=== PATIENT | male | born 2000 | race Caucasian/White ===

== ENCOUNTER 2024-03-12 22:14 | Inpatient (IN) ==
[2024-03-12 22:40] LABS: Basophils # (auto) 0.08 K/uL (0.00-0.20); Basophils % (auto) 1.2 %; Eosinophils # (auto) 0.56 K/uL (0.00-0.50); Eosinophils % (auto) 8.5 %; Hematocrit (blood only) 42.3 % (42.0-52.0); Hemoglobin 14.7 g/dl (14.0-18.0); Immature Granulocytes # (auto) 0.01 K/uL (0.01-0.20); Immature Granulocytes % (auto) 0.2 %; Lymphocytes % (auto) 30.2 %; Mean Corpuscular Hemoglobin 31.8 pg (25.0-34.0); Mean Corpuscular Hgb Conc 34.8 g/dL (32.0-36.0); Mean Corpuscular Volume 91.6 fL (80.0-100.0); Mean Platelet Volume 9.2 fL (9.4-12.4); Monocytes # (auto) 0.46 K/uL (0.11-0.59); Monocytes % (auto) 6.9 %; Neutrophils # (auto) 3.51 K/uL (1.40-6.50); Platelet Count 273 K/uL (130-400); RDW Coefficient of Variation 11.6 % (11.5-14.5); Red Blood Count 4.62 M/uL (4.70-6.10); White Blood Count 6.62 K/ul (4.8-10.8)
[2024-03-12 22:55] LABS: Acetaminophen < 3 ug/ml (10-30); Salicylate < 3.0 mg/dl (3.0-30)
[2024-03-12 22:57] LABS: Alanine Aminotransferase 8 U/L (7-52); Albumin Globulin Ratio 1.6 (0.9-2); Albumin Level 4.2 gm/dl (3.4-5.0); Alkaline Phosphatase 99 U/L (34-104); Anion Gap 7 (3-11); Aspartate Aminotransferase 15 U/L (13-39); BUN Creatinine Ratio 17.4 (10-20); Bilirubin,Total 0.3 mg/dl (0.2-1.0); Blood Urea Nitrogen 15 mg/dl (6-23); Carbon Dioxide 26 mmol/L (21-32); Chloride 105 mmol/L (98-107); Est GFR (African American) 142.7 ml/min; Est GFR (Non-African American) 123.1 ml/min; Globulin 2.7 gm/dl (2.5-4.0); Glucose 103 mg/dl (70-99(Fasting)); Potassium 4.1 mmol/L (3.5-5.1); Sodium 138 mmol/L (136-145); Total Protein 6.9 gm/dl (6.0-8.3)
[2024-03-12] MEDS: SODIUM CHLORIDE 0.9% 1,000 ML IV ONE (23:03)
[2024-03-12 23:12] LABS: Thyroid Stimulating Hormone 1.012 uIu/ml (0.300-4.500)
--- NOTE | 2024-03-12 23:23 | CT Scan Report ---
Exam(s): CT C SPINE EXAM: CT Cervical Spine Without Intravenous Contrast CLINICAL HISTORY: Reason for exam: head trauma OD. TECHNIQUE: Axial computed tomography images of the cervical spine without intravenous contrast. CTDI is 21.99 mGy and DLP is 371.39 mGy-cm. Automated exposure control was utilized for the study. A dose lowering technique was utilized adhering to the principles of ALARA. COMPARISON: 08/28/23 FINDINGS: Vertebrae: Unremarkable. No acute fracture. No traumatic subluxation. Discs/spinal canal/neural foramina: No acute findings. No spinal canal stenosis. Soft tissues: Unremarkable. IMPRESSION: No acute osseous findings. Electronically signed by: Mal Baird M.D. 03/12/24 23:22 PM
--- NOTE | 2024-03-12 23:24 | CT Scan Report ---
Exam(s): CT HEAD Without Contrast EXAM: CT Head Without Intravenous Contrast CLINICAL HISTORY: Reason for exam: head trauma OD. TECHNIQUE: Axial computed tomography images of the head/brain without intravenous contrast. CTDI is 37.42 mGy and DLP is 624.41 mGy-cm. Automated exposure control was utilized for the study. A dose lowering technique was utilized adhering to the principles of ALARA. COMPARISON: 08/28/23 FINDINGS: Brain: Unremarkable. No hemorrhage. No significant white matter disease. No edema. Oshea-white matter differentiation maintained. Ventricles: Unremarkable. No hydrocephalus. Bones/joints: Unremarkable. No acute fracture. Soft tissues: Unremarkable. Sinuses: Unremarkable as visualized. Mastoid air cells: Unremarkable as visualized. No mastoid effusion. IMPRESSION: No acute intracranial process. Electronically signed by: Mal Baird M.D. 03/12/24 23:22 PM
--- NOTE | 2024-03-12 23:48 | Emergency Department Note ---
History of Present Illness General Chief complaint: Overdose (Intentional) Stated complaint: Intentional Overdose Prescription Meds Time Seen by Provider: 03/12/24 22:16 Source: EMS, police and friends (Girlfriend) History of Present Illness Provider complaint: Overdose 23-year-old male presents emergency department for intentional overdose and suicide attempt. Patient was brought in by state troopers and EMS. According to the state troopers and EMS approximately 40 minutes prior to arrival patient took handfuls of pills and tried to swallow as many as he could. The girlfriend states this occurred because again to a verbal altercation. The girlfriend states he took a metal pole and was hitting himself in the head with a metal pole because he got angry and wanted to kill himself. EMS brought in the empty pill bottles that the patient tried to take. Home Medications Medication Instructions Recorded Confirmed Type acetaminophen 500 mg tablet 500 mg PO Q6H PRN Pain 08/31/23 08/31/23 History aspirin 325 mg tablet 325 mg PO DAILY PRN Pain 08/31/23 08/31/23 History benzonatate 100 mg capsule 100 mg PO TID PRN cough #30 caps 08/31/23 Rx Allergies Allergy/AdvReac Type Severity Reaction Status Date / Time acetaminophen [From NyQuil] Allergy Severe Swelling Verified 08/31/23 15:12 of Lip/Tongue/Throat dextromethorphan Allergy Severe Swelling Verified 08/31/23 15:12 [From NyQuil] of Lip/Tongue/Throat doxylamine [From NyQuil] Allergy Severe Swelling Verified 08/31/23 15:12 of Lip/Tongue/Throat pseudoephedrine [From NyQuil] Allergy Severe Swelling Verified 08/31/23 15:12 of Lip/Tongue/Throat Past Med/Surg History Problem List (Updated 03/13/24 @ 00:09 by Hayder Graham MD) Polysubstance overdose (Acute) Lab test negative for COVID-19 virus (Acute) Contusion of arm, right, multiple sites (Acute) Medical History No pertinent past medical history Social History Smoking Status: Unknown if ever smoked Tobacco Type: Cigarettes Hx Substance Use: Yes Preferred Language: Mohawk Feels Safe at Home: Yes Physical Exam Vital Signs Vital Signs - 24 hr 03/12/24 22:16 03/12/24 22:16 03/12/24 22:27 Temperature 36.7 C Temperature Source Oral Pulse Rate 108 H 104 H Pulse Rate [Apical] Respiratory Rate 22 Respiratory Effort / Characteristics Non-Labored Respiratory Depth Normal Respiratory Pattern Regular Blood Pressure 99/55 L Blood Pressure [Left Arm] Blood Pressure Mean 69 Blood Pressure Mean [Left Arm] Pulse Oximetry 97 100 Oxygen Delivery Method Room Air Room Air Sepsis Recent Fever Within 48 Hours No Sepsis New/Unexplained Change in Mental Status N/A Sepsis Action Taken by Nursing No Action Required 03/12/24 23:04 Temperature Temperature Source Pulse Rate Pulse Rate [Apical] 90 Respiratory Rate 20 Respiratory Effort / Characteristics Respiratory Depth Respiratory Pattern Blood Pressure Blood Pressure [Left Arm] 89/60 L Blood Pressure Mean Blood Pressure Mean [Left Arm] 69 Pulse Oximetry 98 Oxygen Delivery Method Room Air Sepsis Recent Fever Within 48 Hours Sepsis New/Unexplained Change in Mental Status Sepsis Action Taken by Nursing Physical Exam HENT: Exam performed. - Head: Normocephalic and atraumatic. EYES: Conjunctivae and EOM are normal. Pupils are equal, round, and reactive to light. Right eye exhibits no discharge. Left eye exhibits no discharge. No scleral icterus. NECK: Normal range of motion. Neck supple. No JVD present. CV: Normal rate, regular rhythm, normal heart sounds and intact distal pulses. There is no peripheral edema. Palpable radial pulses bue. PULM/CHEST: Effort normal and breath sounds normal. No respiratory distress. No stridor. He has no wheezes. He has no rales. ABD: The abdomen is soft. There is no tenderness. There is no rebound, no guarding NEURO: Motor and sensation grossly intact SKIN: Abrasions to the left forearm. Course Course 221: The patient was evaluated in room A9. A complete history and physical exam was performed Cardiac monitoring: An order was placed for continuous cardiac monitoring. The monitor shows a rate of 100 with sinus rhythm interpreted by me EMS brought all of the patient's pill bottles which are all empty. He has the following bottles with him: - Metocarbama 500 mg 30 tablets -Hydroxyzine 50 mg 60 tablets -Clonidine 0.1 mg 6 tablets -Flexeril 5 mg the number of tablets was by the patient is unclear how many tablets were in the bottle -Prazosin 1 mg 90 tablets Again there are no pills in any of these bottles and is not clear how much the patient actually took or how and he fell on the floor. 2254: Spoke with Rodger from [facility]. He states that the patient needs supportive care and if the patient becomes severely bradycardic and is not responding we could try high-dose of Narcan for 10 mg. 0005: Labs and imaging within normal limits. Spoke with Dr. Thurman and the patient will be admitted to his service for continued observation and psychiatric evaluation. Administered Medications Discontinued Medications Sodium Chloride (Nss) 1,000 mls @ 999 mls/hr IV .Q1H1M ONE Stop: 03/12/24 23:52 Last Admin: 03/12/24 23:03 Dose: 999 mls/hr Documented By: PRAVEEN Medical Decision Making Laboratory Data Attestation: I reviewed the patient's lab results. 03/12/24 22:24 03/12/24 22:24 Lab Results 03/12/24 Range/Units 22:24 WBC 6.62 (4.8-10.8) K/ul RBC 4.62 L (4.70-6.10) M/uL Hgb 14.7 (14.0-18.0) g/dl Hct 42.3 (42.0-52.0) % MCV 91.6 (80.0-100.0) fL MCH 31.8 (25.0-34.0) pg MCHC 34.8 (32.0-36.0) g/dL RDW Std Deviation 39.0 (36.4-46.3) fL RDW Coeff of Alice 11.6 (11.5-14.5) % Plt Count 273 (130-400) K/uL MPV 9.2 L (9.4-12.4) fL Immature Gran % (Auto) 0.2 % Neut % (Auto) 53.0 % Lymph % (Auto) 30.2 % Jay % (Auto) 6.9 % Eos % (Auto) 8.5 % Baso % (Auto) 1.2 % Neut # (Auto) 3.51 (1.40-6.50) K/uL Lymph # (Auto) 2.00 (1.20-3.40) K/uL Jay # (Auto) 0.46 (0.11-0.59) K/uL Eos # (Auto) 0.56 H (0.00-0.50) K/uL Baso # (Auto) 0.08 (0.00-0.20) K/uL Immature Gran # (Auto) 0.01 (0.01-0.20) K/uL Sodium 138 (136-145) mmol/L Potassium 4.1 (3.5-5.1) mmol/L Chloride 105 (98-107) mmol/L Carbon Dioxide 26 (21-32) mmol/L Anion Gap 7 (3-11) BUN 15 (6-23) mg/dl Creatinine 0.86 (0.6-1.4) mg/dl Est Cr Clr Drug Dosing Not Reportable Est GFR ( Amer) 142.7 ml/min Est GFR (Non-Af Amer) 123.1 ml/min BUN/Creatinine Ratio 17.4 (10-20) Glucose 103 H (70-99(Fasting)) mg/dl Calcium 9.0 (8.6-10.3) mg/dl Total Bilirubin 0.3 (0.2-1.0) mg/dl AST 15 (13-39) U/L ALT 8 (7-52) U/L Alkaline Phosphatase 99 (34-104) U/L Total Protein 6.9 (6.0-8.3) gm/dl Albumin 4.2 (3.4-5.0) gm/dl Globulin 2.7 (2.5-4.0) gm/dl Albumin/Globulin Ratio 1.6 (0.9-2) TSH 1.012 (0.300-4.500) uIu/ml Salicylates < 3.0 L (3.0-30) mg/dl Acetaminophen < 3 L (10-30) ug/ml Ethyl Alcohol mg/dL < 10.0 (<10.0) mg/dl SARS-CoV-2, RNA, NAAT NEGATIVE (NEGATIVE) Imaging Data Attestation: I personally reviewed and interpreted this imaging study as follows: My Impression: CT head: No ICH Radiologist's Impression: Cervical Spine CT 03/12/24 22:34 Exam(s): CT C SPINE EXAM: CT Cervical Spine Without Intravenous Contrast CLINICAL HISTORY: Reason for exam: head trauma OD. TECHNIQUE: Axial computed tomography images of the cervical spine without intravenous contrast. CTDI is 21.99 mGy and DLP is 371.39 mGy-cm. Automated exposure control was utilized for the study. A dose lowering technique was utilized adhering to the principles of ALARA. COMPARISON: 08/28/23 FINDINGS: Vertebrae: Unremarkable. No acute fracture. No traumatic subluxation. Discs/spinal canal/neural foramina: No acute findings. No spinal canal stenosis. Soft tissues: Unremarkable. IMPRESSION: No acute osseous findings. Electronically signed by: Mal Baird M.D. 03/12/24 23:[address] 03/12/24 22:34 Exam(s): CT HEAD Without Contrast EXAM: CT Head Without Intravenous Contrast CLINICAL HISTORY: Reason for exam: head trauma OD. TECHNIQUE: Axial computed tomography images of the head/brain without intravenous contrast. CTDI is 37.42 mGy and DLP is 624.41 mGy-cm. Automated exposure control was utilized for the study. A dose lowering technique was utilized adhering to the principles of ALARA. COMPARISON: 08/28/23 FINDINGS: Brain: Unremarkable. No hemorrhage. No significant white matter disease. No edema. Oshea-white matter differentiation maintained. Ventricles: Unremarkable. No hydrocephalus. Bones/joints: Unremarkable. No acute fracture. Soft tissues: Unremarkable. Sinuses: Unremarkable as visualized. Mastoid air cells: Unremarkable as visualized. No mastoid effusion. IMPRESSION: No acute intracranial process. Electronically signed by: Mal Baird M.D. 03/12/24 23:22 PM ECG Data Attestation: I personally reviewed and interpreted this ECG as follows: Indication: + toxicologic Rate (beats per minute): 113 Rhythm: + sinus tachycardia ECG Intervals/blocks: + Normal QRS, + Normal [place] and + Normal QT-c ECG ST segments: + Normal ST segments MDM Narrative 2216: The patient was evaluated in room A9. A complete history and physical exam was performed Cardiac monitoring: An order was placed for continuous cardiac monitoring. The monitor shows a rate of 100 with sinus rhythm interpreted by me EMS brought all of the patient's pill bottles which are all empty. He has the following bottles with him: - Metocarbama 500 mg 30 tablets -Hydroxyzine 50 mg 60 tablets -Clonidine 0.1 mg 6 tablets -Flexeril 5 mg the number of tablets was by the patient is unclear how many tablets were in the bottle -Prazosin 1 mg 90 tablets Again there are no pills in any of these bottles and is not clear how much the patient actually took or how and he fell on the floor. 2254: Spoke with Rodger from [facility]. He states that the patient needs supportive care and if the patient becomes severely bradycardic and is not responding we could try high-dose of Narcan for 10 mg. 0005: Labs and imaging within normal limits. Spoke with Dr. Thurman and the patient will be admitted to his service for continued observation and psychiatric evaluation. Impression & Plan Polysubstance overdose Discharge Plan Visit Data Chief Complaint: Overdose (Intentional) Stated Complaint: Intentional Overdose Prescription Meds ED Provider: Hayder Graham Discharge Problem: Polysubstance overdose Patient Disposition: Admitted As Inpatient Forms Stand Alone Forms: [facility], Suicide Prevention Resources Prescriptions Prescriptions: No Action aspirin 325 mg Tablet 325 mg PO DAILY PRN (Reason: Pain) acetaminophen [Tylenol Ex Str Rapid Release] 500 mg Tablet 500 mg PO Q6H PRN (Reason: Pain) benzonatate 100 mg capsule 100 mg PO TID PRN (Reason: cough) Qty: 30 0RF Referrals Referrals: PCP,NO [Primary Care Provider] - Discharge Problem: Polysubstance overdose Qualifiers: Encounter type: initial encounter Injury intent: intentional self-harm Q ualified Code(s): T50.902A - Poisoning by unspecified drugs, medicaments and biological substances, intentional self-harm, initial encounter
[2024-03-13] MEDS: SODIUM CHLORIDE 0.9% 1,000 ML IV SCH ×3 (00:36→12:14)
[2024-03-13] MEDS: SODIUM CHLORIDE 0.9% 1,000 ML IV ONE ×3 (01:05→03:22)
[2024-03-13] MEDS ORDERED: STAT IV Infusion **Titration per Protocol STA (03:05)
[2024-03-13] MEDS: NOREPINEPHRINE/D5W 4 MG/250 ML PLCT IV SCH (03:24)
[2024-03-13 03:36] LABS: Magnesium 2.1 mg/dl (1.7-2.4)
[2024-03-13 04:43] LABS: Appearance Urine Clear (Clear); Bilirubin Urine Negative (Negative); Blood Urine Negative (Negative); Color Urine Yellow; Glucose Urine UA Negative (Negative); Ketones Urine Negative (Negative); Leukocyte Esterase Urine Negative (Negative); Nitrite Urine Negative (Negative); Protein Urine Negative (Negative); Specific Gravity Urine 1.016 (1.000-1.030); Urobilinogen Urine Negative (Negative)
--- NOTE | 2024-03-13 04:45 | Critical Care Consultation ---
Date of Consultation March 13, 2024 Assessment & Plan (1) Polysubstance overdose: (2) Urinary retention: (3) Hypotension due to medication: (4) Suicide attempt: Plan Reason Critically Ill: 23 YOM presents via EMS for polysubstance overdose of unkown amount and unknown medications- presumed as per HPI meds. No requiring vasopressor support. Neuro - Suicide attempt by ingestion, Encephalopathy CAM ICU: - Somnulent, but able to follow commands, currently protecting airway - Continue with IVF support and await clearing of medications - Suicide precautions- 302 - patient can not leave AMA - Await full tox screen -Neurological exams- if any change obtain non-con head CT for DASH secondary to reported head strikes Cardiac - Shock secondary to ingestion - No evidence of organ dysfunction - LEVOphed for BP support- MAP goal 60 - If hemodynamics worsen- high dose Narcan per Poison Control recommendations - At this time patient is at least 6 hours post ingestion- continue with IVF for dilution and excretion Respiratory - No acute needs - Continue to monitor respiratory status - ETCo2 monitoring- intubation if required GI - No acute needs RENAL/LYTES - No acute needs - Patient without AGAP and HCO3 normal - Urinary retention - unclear if side effect from medications or secondary to mentation - straight cath now- if remains with Incomplete emptying- will place Chen catheter ENDO - No acute needs HEME - No acute needs ID - No concern at this time for infectious etiology LINES/IV ACCESS - PIV Continue use of these lines DVT PROPHYLAXIS - SCDS DISPO: ICU while requiring vasopressor support I have personally spent 35 minutes of critical care time in the direct management of this patient. This is a life/limb threatening event. This includes time spent evaluating patient, direct bedside care, chart review, placing orders, interpretation of diagnostic studies, discussion with consultants, patient, and family members, as well as other required patient management activities. This time is exclusive of all separately billable procedures, and teaching time and separate from and in addition to any other critical care service time. Thank you for allowing us to participate in the care of this patient. Please refer to my attending physician's documentation for any further recommendations. Supervising Physician Co-Signing Physician Notes I have personally evaluated and examined this patient. I agree with assessment and plan of Sukh EARLY. Patient was evaluated at 1320, easily arouses to voice is oriented to person place and time. Continued volume expansion with crystalloid, I believe he is likely taken mild excess of his prazosin which is likely causing him to be very mildly hypotensive. Patient is drowsy but not frankly somnolent, and arouses easily to light verbal stimuli. Discontinuing Chen at this time. Once patient has been effectively off vasoactive's for 2 hours he would be stable for downgrade out of ICU. We have discontinued his vasoactive's, I believe we can simply volume expanded with crystalloid if he is relatively hypotensive I would check a lactic acid at this time to evaluate for any evidence of endorgan perfusion but believe you will be able to tolerate clinically. History of Present Illness Reason for Consultation: suicide attempt intentional overdose now requiring vasopressors Requesting Physician: Santy Spencer MD Attending Physician: Santy Spencer MD History of Present Illness 23 YOM no records noted in our current EMR other than EMD visits. All information in this note is from Chart review and discussion with EMD nurse and admitting provider. Patient reportedly was brought in by EMS following [facility] ation with his girlfriend. Reports of ingesting unknown amount or type of multiple pills. He is accompanied by multiple pill bottles that are all empty- these are Methocarbanol, Hydroxyzine, Clonidine, Flexeril, and Prazosin. EMD note reports that approx 40 min prior to arrival the patient ingested these pills as per state police and EMS reports. This is unclear if 40 minutes prior EMS arrival or arrival to the EMD. There was no administration of Activated Charcoal or Stomach irrigation on arrival. Reported as well he was striking himself in head with metal object- initial head CT and cervical spine CT are negative for acute process. Patient appears to have arrived to the EMD with vitals initiated at 2216. ICU consulted at 0400 for persistent hypotension no requiring vasopressors. Patient was resuscitated with 5 liters of crystalloid prior to initiation of vasopressor agents. Poison control was contacted by the EMD and reports supportive care and consideration to high dose Narcan if bradycardia. Patient has not voided at this time. Patient will be admitted to the ICU for supportive care for hemodynamics, and respiratory support if needed. Patient is currently somnolent but does open eyes to voice and follows commands. Further toxicology screen pending urine- which is being obtained by straight cath. Allergies Allergy/AdvReac Type Severity Reaction Status Date / Time acetaminophen [From NyQuil] Allergy Severe Swelling Verified 03/13/24 10:08 of Lip/Tongue/Throat dextromethorphan Allergy Severe Swelling Verified 03/13/24 10:08 [From NyQuil] of Lip/Tongue/Throat doxylamine [From NyQuil] Allergy Severe Swelling Verified 03/13/24 10:08 of Lip/Tongue/Throat pseudoephedrine [From NyQuil] Allergy Severe Swelling Verified 03/13/24 10:08 of Lip/Tongue/Throat Home Medications Medication Instructions Recorded Confirmed Type acetaminophen 500 mg tablet 500 mg PO Q6H PRN Pain 08/31/23 03/13/24 History albuterol sulfate 90 mcg/actuation 2 puff inhalation Q6H PRN chest 03/13/24 03/13/24 History aerosol inhaler tightness clonidine HCl 0.1 mg tablet 0.1 mg PO BID PRN Agitation 03/13/24 03/13/24 History epinephrine 0.3 mg/0.3 mL 0.3 mg IM UD PRN Severe Reaction 03/13/24 03/13/24 History injection, auto-injector (EpiPen 2-Adam) fluoxetine 20 mg capsule 20 mg PO QAM 03/13/24 03/13/24 History hydroxyzine HCl 50 mg tablet 50 mg PO Q6H PRN Anxiety 03/13/24 03/13/24 History prazosin 1 mg capsule 1 mg PO HS 03/13/24 03/13/24 History Patient History Medical History No pertinent past medical history Social History Smoking Status: Current every day smoker Tobacco Type: Cigarettes Hx Alcohol Use: No Hx Substance Use: Yes (friend unsure) Preferred Language: Slovenian Communication Ability: Effective Coffee Maker Required: No Beliefs That Will Affect Care: None Current Living Situation: Significant Other Feels Safe at Home: Yes Assistive Devices: None Review of Systems Review of Systems: unable to obtain secondary to mental status Physical Exam Physical Exam: PHYSICAL EXAM: General: somnulent Head: Normocephalic, atraumatic ENT: PERRLA- 3/2 sluggish, EOMI, no pharyngeal exudate, mucous membranes dry Neuro: AAO x 3, speech slurry and slow, but appropriate, strength intact bilaterally 5/5, sensation intact and equal all extremities and dermatomes, follows commands Chest: equal rise and fall of the chest, no accessory muscle use, no heaves or thrills, Clear to auscultation, on room air, Cardiac: Regular rate and rhythm, telemetry reviewed- NSR no ectopy, skin warm dry, cap refill <3 seconds, peripheral pulses +2 no JVD, no murmur, no edema GI: NABS x 4 quadrants, soft, nontender to palpation, no rebound, guarding or tenderness : pending urine- required straight cath- Results & Data Results & Data Vital Signs (Past 12 Hours) Vital Signs Temp Pulse Pulse Resp BP BP Pulse Ox 03/13/24 04:00 71 14 93/59 L 97 03/13/24 03:39 60 17 98/55 L 99 03/13/24 03:35 62 17 92/51 L 99 03/13/24 03:31 63 17 76/53 L 99 03/13/24 03:26 64 17 73/48 L 98 03/13/24 03:17 61 17 74/49 L 99 03/13/24 03:01 64 17 71/43 L 98 03/13/24 02:52 16 70/45 L 03/13/24 02:30 74 76/49 L 03/13/24 02:26 70 03/13/24 02:14 66 18 71/40 L 98 03/13/24 02:00 72 15 85/46 L 99 03/13/24 01:45 66 19 80/40 L 98 03/13/24 01:30 68 16 86/41 L 98 03/13/24 01:16 86 14 90/40 L 98 03/13/24 01:06 90 16 80/56 L 98 03/13/24 01:00 72 18 79/43 L 98 03/13/24 00:00 74 19 82/62 L 97 03/12/24 23:04 90 20 89/60 L 98 03/12/24 22:27 104 H 03/12/24 22:16 100 03/12/24 22:16 36.7 C 108 H 22 99/55 L 97 O2 Del Method 03/13/24 04:00 Room Air 03/13/24 03:39 Room Air 03/13/24 03:35 Room Air 03/13/24 03:31 Room Air 03/13/24 03:26 Room Air 03/13/24 03:17 Room Air 03/13/24 03:01 Room Air 03/13/24 02:52 03/13/24 02:30 03/13/24 02:26 03/13/24 02:14 Room Air 03/13/24 02:00 Room Air 03/13/24 01:45 Room Air 03/13/24 01:30 Room Air 03/13/24 01:16 Room Air 03/13/24 01:06 Room Air 03/13/24 01:00 03/13/24 00:00 Room Air 03/12/24 23:04 Room Air 03/12/24 22:27 03/12/24 22:16 Room Air 03/12/24 22:16 Room Air Laboratory Results Abnormal lab results 03/12/24 Range/Units 22:24 RBC 4.62 L (4.70-6.10) M/uL MPV 9.2 L (9.4-12.4) fL Eos # (Auto) 0.56 H (0.00-0.50) K/uL Glucose 103 H (70-99(Fasting)) mg/dl Salicylates < 3.0 L (3.0-30) mg/dl Acetaminophen < 3 L (10-30) ug/ml Diagnostic Findings Cervical Spine CT 03/12/24 22:34 Exam(s): CT C SPINE EXAM: CT Cervical Spine Without Intravenous Contrast CLINICAL HISTORY: Reason for exam: head trauma OD. TECHNIQUE: Axial computed tomography images of the cervical spine without intravenous contrast. CTDI is 21.99 mGy and DLP is 371.39 mGy-cm. Automated exposure control was utilized for the study. A dose lowering technique was utilized adhering to the principles of ALARA. COMPARISON: 08/28/23 FINDINGS: Vertebrae: Unremarkable. No acute fracture. No traumatic subluxation. Discs/spinal canal/neural foramina: No acute findings. No spinal canal stenosis. Soft tissues: Unremarkable. IMPRESSION: No acute osseous findings. Electronically signed by: Mal Baird M.D. 03/12/24 23:[address] 03/12/24 22:34 Exam(s): CT HEAD Without Contrast EXAM: CT Head Without Intravenous Contrast CLINICAL HISTORY: Reason for exam: head trauma OD. TECHNIQUE: Axial computed tomography images of the head/brain without intravenous contrast. CTDI is 37.42 mGy and DLP is 624.41 mGy-cm. Automated exposure control was utilized for the study. A dose lowering technique was utilized adhering to the principles of ALARA. COMPARISON: 08/28/23 FINDINGS: Brain: Unremarkable. No hemorrhage. No significant white matter disease. No edema. Oshea-white matter differentiation maintained. Ventricles: Unremarkable. No hydrocephalus. Bones/joints: Unremarkable. No acute fracture. Soft tissues: Unremarkable. Sinuses: Unremarkable as visualized. Mastoid air cells: Unremarkable as visualized. No mastoid effusion. IMPRESSION: No acute intracranial process. Electronically signed by: Mal Baird M.D. 03/12/24 23:22 PM Coding Level of Care Code 61131 CRITICAL CARE 1ST 30-74M Diagnoses Polysubstance overdose T50.902A Encounter type: initial encounter Injury intent: intentional self-harm Urinary retention R33.9 Hypotension due to medication I95.2 Suicide attempt T14.91XA (1) Polysubstance overdose Encounter type: initial encounter Injury intent: intentional self-harm Qualified Code(s): T50.902A - Poisoning by unspecified drugs, medicaments and biological substances, intentional self-harm, initial encounter
[2024-03-13] MEDS ORDERED: ACETAMINOPHEN 325 MG TAB PO PRN (05:00)
[2024-03-13] MEDS ORDERED: PROMETHAZINE HCL 6.25 MG in SODIUM CHLORIDE 0.9% 50 ML IV PRN (05:00)
[2024-03-13 05:12] LABS: Amphetamines+Metham, Urine Pos (Neg); Barbiturates, Urine Neg (Neg); Benzodiazepine, Urine Neg (Neg); Cocaine, Urine Neg (Neg); MDMA (Ecstacy), Urine Neg (Neg); Marijuana, Urine Neg (Neg); Methadone, Urine Neg (Neg); Opiate, Urine Neg (Neg); Phencyclidine, Urine Neg (Neg)
[2024-03-13 06:35] LABS: Anion Gap 3 (3-11); BUN Creatinine Ratio 19.1 (10-20); Blood Urea Nitrogen 13 mg/dl (6-23); Calcium 7.7 mg/dl (8.6-10.3); Carbon Dioxide 23 mmol/L (21-32); Chloride 112 mmol/L (98-107); Creatinine Clr Calc Pharmacy 141.7 ml/min; Est GFR (African American) > 150.0 ml/min; Est GFR (Non-African American) 135.6 ml/min; Glucose 130 mg/dl (70-99(Fasting)); Potassium 4.1 mmol/L (3.5-5.1); Sodium 138 mmol/L (136-145)
[2024-03-13 06:41] LABS: Basophils # (auto) 0.07 K/uL (0.00-0.20); Basophils % (auto) 0.9 %; Eosinophils % (auto) 6.2 %; Hematocrit (blood only) 33.8 % (42.0-52.0); Hemoglobin 11.4 g/dl (14.0-18.0); Immature Granulocytes # (auto) 0.03 K/uL (0.01-0.20); Immature Granulocytes % (auto) 0.4 %; Lymphocytes # (auto) 2.63 K/uL (1.20-3.40); Lymphocytes % (auto) 32.5 %; Mean Corpuscular Hemoglobin 30.9 pg (25.0-34.0); Mean Corpuscular Hgb Conc 33.7 g/dL (32.0-36.0); Mean Corpuscular Volume 91.6 fL (80.0-100.0); Mean Platelet Volume 9.3 fL (9.4-12.4); Monocytes # (auto) 0.56 K/uL (0.11-0.59); Monocytes % (auto) 6.9 %; Neutrophils # (auto) 4.31 K/uL (1.40-6.50); Neutrophils % (auto) 53.1 %; Platelet Count 221 K/uL (130-400); RDW Coefficient of Variation 11.6 % (11.5-14.5); Red Blood Count 3.69 M/uL (4.70-6.10)
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
[2024-03-13] MEDS: ICU Protocol for HYPERglycemia SCH (08:15)
--- NOTE | 2024-03-13 10:26 | Electrocardiogram Report ---
Test Reason : Blood Pressure : / mmHG Vent. Rate : 113 BPM Atrial Rate : 113 BPM P-R Int : 126 ms QRS Dur : 080 ms QT Int : 310 ms P-R-T Axes : 058 079 051 degrees QTc Int : 425 ms Sinus tachycardia Nonspecific T wave abnormality Abnormal ECG When compared with ECG of 31-AUG-2023 13:44, No significant change was found Confirmed by Thomas Tamez ([id number]) on 03/13/2024 10:26:23 AM Referred By: REFERRED SELF Confirmed By:Tyson Tamez
[2024-03-13] MEDS: SODIUM CHLORIDE 0.45 % 1,000 ML IV SCH (12:11)
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
--- NOTE | 2024-03-13 14:29 | Communication Note ---
Date of Service: March 13, 2024 Psychiatry Note: S/O: 23 yo man with history of schizophrenia, substance use, anxiety, mood disorder, ADHD admitted medically for suspected suicide attempt via polysubstance ingestion and subsequent self-harm requiring ICU admission. He is currently on a 302 warrant as he was not medically clear to participate in assessment to determine if he meets criteria for 302 commitment. On attempt to assess him today he is difficult to wake, somnolent and oriented only to self. Therefore 302 warrant cannot be dispositioned at this time. A/P: Chart review consistent with likely suicide attempt via overdose in setting of recent worsening depression. The patient is not able to leave the hospital AMA as there is an active 302 warrant. They should remain on safety precautions with 1-on-1 pending ability to make a determination re: need for involuntary psychiatric treatment. The determination will need to be made within two hours of medical clearance. At this time, the 302 is unable to be completed becausehe remains not oriented and sedated. The patient will be reassessed by nursing every hour and the [facility] psychiatric liason RN and primary provider will need to be notified when patient is able to participate in full assessment. -May not leave AMA -Remain on 1-on-1 -Once medically stable to participate in assessment then 302 warrant will need to be dispositoned within 2 hours -Full psychiatry consult once patient is able to participate in assessment
--- NOTE | 2024-03-13 15:22 | Electrocardiogram Report ---
Test Reason : Blood Pressure : / mmHG Vent. Rate : 061 BPM Atrial Rate : 061 BPM P-R Int : 110 ms QRS Dur : 086 ms QT Int : 450 ms P-R-T Axes : 013 081 061 degrees QTc Int : 453 ms Sinus rhythm Prolonged QT When compared with ECG of 12-MAR-2024 22:21, Vent. rate has decreased BY 52 BPM Confirmed by Thomas Tamez ([id number]) on 03/13/2024 3:21:52 PM Referred By: REFERRED SELF Confirmed By:Tyson Tamez
[2024-03-13 15:25] LABS: Hematocrit (blood only) 33.3 % (42.0-52.0); Hemoglobin 11.1 g/dl (14.0-18.0)
[2024-03-13 15:43] LABS: Alanine Aminotransferase 34 U/L (7-52); Albumin Globulin Ratio 1.7 (0.9-2); Alkaline Phosphatase 57 U/L (34-104); Anion Gap 3 (3-11); Aspartate Aminotransferase 50 U/L (13-39); BUN Creatinine Ratio 15.5 (10-20); Bilirubin,Total 0.2 mg/dl (0.2-1.0); Blood Urea Nitrogen 11 mg/dl (6-23); Calcium 7.4 mg/dl (8.6-10.3); Carbon Dioxide 23 mmol/L (21-32); Chloride 114 mmol/L (98-107); Creatinine Clr Calc Pharmacy 135.7 ml/min; Est GFR (African American) > 150.0 ml/min; Est GFR (Non-African American) 133.2 ml/min; Globulin 1.8 gm/dl (2.5-4.0); Glucose 109 mg/dl (70-99(Fasting)); Potassium 4.1 mmol/L (3.5-5.1); Sodium 140 mmol/L (136-145); Total Protein 4.8 gm/dl (6.0-8.3)
--- NOTE | 2024-03-13 18:13 | Communication Note ---
Date of Service: March 13, 2024 Discussed with psychiatry liaison. Patient was seen and questioned at bedside. Patient agrees for inpatient psychiatric management once medically stable. Family at bedside. Will disposition 302 as recommended by psychiatry. If patient attempts to leave AMA, will have to resign 302.
[2024-03-14 05:17] LABS: Albumin Globulin Ratio 1.6 (0.9-2); Albumin Level 3.1 gm/dl (3.4-5.0); BUN Creatinine Ratio 11.4 (10-20); Bilirubin,Total 0.3 mg/dl (0.2-1.0); Calcium 7.9 mg/dl (8.6-10.3); Creatinine Clr Calc Pharmacy 109.5 ml/min; Est GFR (African American) 141.3 ml/min; Est GFR (Non-African American) 121.9 ml/min; Globulin 1.9 gm/dl (2.5-4.0); Magnesium 2.1 mg/dl (1.7-2.4); Phosphorus 3.5 mg/dl (2.5-4.9); Potassium 4.1 mmol/L (3.5-5.1)
[2024-03-14 05:33] LABS: Hematocrit (blood only) 35.9 % (42.0-52.0); Mean Corpuscular Hemoglobin 31.4 pg (25.0-34.0); Mean Corpuscular Hgb Conc 33.4 g/dL (32.0-36.0); Mean Platelet Volume 9.3 fL (9.4-12.4); Platelet Count 215 K/uL (130-400); RDW Standard Deviation 41.2 fL (36.4-46.3); Red Blood Count 3.82 M/uL (4.70-6.10); White Blood Count 9.07 K/ul (4.8-10.8)
--- OUTSIDE RECORDS SUMMARY | 2024-03-14 07:53 | External Medical Summary | Summary of Care ---
Author Name Unknown Organization [facility] Address [address] [place] [address] Phone [phone] Care Team Providers Care Power Manager Name Role Phone Veena Ibarra MD Primary Care Provid er Encounter Details Date Type Department Care Team (Late st Contact Info) Description 02/24/2024 Orders Only PATIENT PORTAL DO NOT DELETE THIS DEPT USED BY BENNIE WEEKS [id number] Allergies Active Allergy Reactions Criticality Noted Date Comments Bee Venom 02/21/2022 Food (See Comments) 02/21/2022 Sea food, chocolate Se-Jykbjxuycp-Neszlgwalowvk Edema airway High 2020 documented as of this encounter (statuses as of 02/24/2024) Medications Medication Sig Dispensed Refills Start Date End Date Status EpiPen 2-Adam 0.3 MG/0.3ML Injection Solution Auto-injectorIndica tions:Moderate episode of recurrent major depressive disorder (HCC),Other schizophrenia (HCC),Anxiety,Atten tion deficit hyperactivity disorder (ADHD), predominantly inattentive type For a severe reaction: Inject in outer thigh following instructions on package and go to the Emergency room. 2 Each 3 04/06/2022 Active cloNIDine HCl 0.1 MG Oral Tablet (Catapres)Indicatio ns:Moderate episode of recurrent major depressive disorder (HCC),Other schizophrenia (HCC),Anxiety,Atten tion deficit hyperactivity disorder (ADHD), predominantly inattentive type Take 1 Tablet by mouth 2 times a day as needed for Other (agitation). 60 Tablet 2 02/21/2024 Active FLUoxetine HCl 20 MG Oral Capsule (PROzac)Indications :Moderate episode of recurrent major depressive disorder (HCC),Other schizophrenia (HCC),Anxiety,Atten tion deficit hyperactivity disorder (ADHD), predominantly inattentive type Take 1 Capsule by mouth in the morning. 90 Capsule 1 02/21/2024 Active hydrOXYzine HCl 50 MG Oral TabletIndications:M oderate episode of recurrent major depressive disorder (HCC),Other schizophrenia (HCC),Anxiety,Atten tion deficit hyperactivity disorder (ADHD), predominantly inattentive type Take 1 Tablet by mouth every 6 hours as needed for Anxiety. 60 Tablet 5 02/21/2024 Active Prazosin HCl 1 MG Oral Capsule (Minipress)Indicati ons:Moderate episode of recurrent major depressive disorder (HCC),Other schizophrenia (HCC),Anxiety,Atten tion deficit hyperactivity disorder (ADHD), predominantly inattentive type Take 1 Capsule by mouth every night at bedtime. 90 Capsule 1 02/21/2024 Active Albuterol Sulfate HFA 108 (90 Base) MCG/ACT Inhalation Aerosol Solution Inhale 2 Puffs by mouth every 6 hours as needed (chest tightness, SOB). 18 g 3 02/21/2024 Active documented as of this encounter (statuses as of 02/24/2024) Active Problems Problem Noted Date Diagnosed Date Food insecurity 10/07/2023 Overview: Per [facility] Protocol No diagnosis on [place] 07/06/2022 Adjustment disorder with depressed mood 03/24/20 Methamphetamine abuse 03/24/2022 Opioid abuse, in remission 03/24/2022 Homicidal ideation 07/04/2021 Tobacco use disorder 05/18/2021 Anxiety 02/16/2021 Moderate episode of recurrent major depressive d isorder 02/16/2021 Attention deficit hyperactiv ity disorder (ADHD), predominantly inattentive type 02/16/2021 Heart murmur 02/16/2021 Other schizophrenia 02/16/2021 documented as of this encounter (statuses as of 02/24/2024) Resolved Problems Problem Noted Date Diagnosed Date Resolved Date Suicidal ideations 05/18/2021 documented as of this encounter (statuses as of 02/24/2024) Immunizations Name Administration Dates Next Due TDAP (age 10 and older)(Boostrix) 04/28/2021 documented as of this encounter Social History Tobacco Use Types Packs/Day Years Used Date Smoking Tobacco: Every Day Cigarettes Smokeless Tobacco: Former Chew Comments:vapes Alcohol Use Standard Drinks/Week Comments Not Currently 0 (1 standard drink = 0.6 oz pur e alcohol) on occasion PHQ-2 Answer Date Recorded PHQ Adult Total Score 18 04/28/2021 Hunger Vital Sign Answer Date Recorded Within the past 12 months, y ou worried that your food would run out before you got the money to buy more. Never true 04/28/20 21 Within the past 12 months, t he food you bought just didn't last and you didn't have money to get more. Never true 04/28/2021 Sex and Gender Information Value Date Recorded Sex Assigned at Male 02/16/2021 2:41 PM EDT Gender Identity Male 02/16/2021 2:41 PM EDT Sexual Orientation Not on file Job Start Date Occupation Industry Not on file Not on file Not on file documented as of this encounter Plan of Treatment Upcoming Encounters Date Type Department Care Team (Late st Contact Info) Description 05/22/2024 1:20 PM EDT Office Visit [facility] [address] [place] [address] Josse Maurer MD [address] [place] [address] Health Maintenance Due Date Last Done Comments Pneumococcal Vaccine: Pediat rics (0 to 5 Years) and At-Risk Patients (6 to 64 Years) (1 of 2 - PCV) 2007 GARDASIL-HPV IMMUNIZATION SE MICHELLE (1 - Male 3-dose series) 2016 HIV Screening 2016 Hepatitis C Screening 2019 Hepatitis B (1 of 3 - 19+ 3- dose series) 2020 Depression, Most Recent Scor e >= 10 (will fire each visit until score < 10) 04/29/2021 04/28/2021 COVID-19 Vaccine ( - 2022-2 4 season) 2023 Influenza Vaccine (FLU shot) (Season Ended) 2024 DTaP,Tdap,and Td Vaccines (2 - Td or Tdap) 04/28/2031 04/28/2021 MENINGOCOCCAL (MENACTRA/MENVEO) Aged Out No longer eligible based on patient's age to complete this topic documented as of this encounter Medical Devices Not on filedocumented as of this encounter Advance Directives Latest Code Status on File Code Status Date Activated Date Inactivated Comments Full Code 03/21/2022 9:38 PM 03/25/2022 7:44 PM This order reflects the patients wishes and were consensually agreed upon. Code Status History Code Status Date Activated Date Inactivated Comments Full Code 07/04/2021 10:57 AM 07/11/2021 1:21 PM This order reflects the patients wishes and were consensually agreed upon. Full Code 05/18/2021 1:06 AM 05/23/2021 1:46 PM This order reflects the patients wishes and were consensually agreed upon. Care Teams Power Manager Relationship Specialty Start Date End Date Veena Ibarra MD [address] [facility] [place] [id number] PCP - General Family Medicine 03/22/22 documented as of this encounter
--- OUTSIDE RECORDS SUMMARY | 2024-03-14 07:53 | External Medical Summary | Summary of Care ---
Author Name Unknown Organization [facility] Address [address] [place] [address] Phone [phone] Care Team Providers Care Hard Rock Miner Blasting Name Role Phone Veena Ibarra MD Primary Care Provid er Reason for Visit * Reason Onset Date Comments Advice 02/24/2024 Encounter Details Date Type Department Care Team (Late st Contact Info) Description 02/24/2024 Telephone [facility] [address] [place] [address] Veena Ibarra MD [address] [place] [address] Advice Allergies Active Allergy Reactions Criticality Noted Date Comments Bee Venom 02/21/2022 Food (See Comments) 02/21/2022 Sea food, chocolate Nj-Hmcrumxjwf-Ontslcuftyesp Edema airway High 2020 documented as of this encounter (statuses as of 03/10/2024) Medications Medication Sig Dispensed Refills Start Date [...] as of this encounter (statuses as of 03/10/2024) Active Problems Problem Noted Date Diagnosed Date Food insecurity 10/07/2023 Overview: Per [facility] Protocol No diagnosis on [place] I 07/06/2022 Adjustment disorder with depressed mood 03/24/20 Methamphetamine abuse 03/24/2022 Opioid abuse, in remission 03/24/2022 Homicidal ideation 07/04/2021 Tobacco use disorder 05/18/2021 Anxiety 02/16/2021 Moderate episode of recurrent major depressive d isorder 02/16/2021 Attention deficit hyperactiv ity disorder (ADHD), predominantly inattentive type 02/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 Heart murmur 02/16/2021 Other schizophrenia 02/16/2021 documented as of this encounter (statuses as of 03/10/2024) Resolved Problems Problem Noted Date Diagnosed Date Resolved Date Suicidal ideations 05/18/2021 documented as of this encounter (statuses as of 03/10/2024) Immunizations Name Administration Dates Next Due TDAP [...] on file documented as of this encounter Miscellaneous Notes * Telephone Encounter - Kathia Spangler LPN - 03/10/2024 12:51 PM EDT MYG message has been read * Telephone Encounter - Kathia Spangler LPN - 03/06/2024 10:53 AM EDT Left message for return call * Telephone Encounter - Kathia Spangler LPN - 03/04/2024 12:10 PM EDT Left message for return call. MYG sent * Telephone Encounter - Myranda Granda LPN - 02/27/2024 4:23 PM EDT Called patient's parent, no answer, left message to return our call. * Telephone Encounter - Josse Maurer MD - 02/25/2024 12:15 PM EDT He was on all those meds in the past Just didn't take several months So please start with prozac 20 mg daily and hydroxyzine as needed And in 1-2 wks , if he wants to try prazocin at night , ok to start Clonidine is only as needed use for anxiety And pt should f/u with psychiatrist * Telephone Encounter - Oswald Neville OSA - 02/24/2024 3:16 PM EDT Please call details and advise documented in this encounter Plan of Treatment Upcoming Encounters Date Type Department Care Team (Late st Contact Info) Description 05/22/2024 1:20 PM EDT Office Visit [facility] [address] [place] [address] Josse Maurer MD [address] [place] [address] 09/03/2024 4:00 PM EST Telemedicine Psychiatry Sal [facility] [address] [place] [address] Sushil Gray MD [address] [place] [address] Health Maintenance Due Date Last Done Comments [...] score < 10) 04/29/2021 04/28/2021 COVID-19 Vaccine (1 - 2022-2 4 season) 2023 Influenza Vaccine [...] and were consensually agreed upon. Care Teams Hard Rock Miner Blasting Relationship Specialty Start Date End Date Veena Ibarra MD [address] [place] [facility] [place] [address] PCP - General Family Medicine 03/22/22 documented as of this encounter
--- OUTSIDE RECORDS SUMMARY | 2024-03-14 07:53 | External Medical Summary | Summary of Care ---
Author Name Unknown Organization [facility] Address [address] [place] [address] Phone [phone] Care Team Providers Care Laboratory Chief Name Role Phone Veena Ibarra MD Primary Care Provid er Reason for Visit * Reason Onset Date Comments Appointment 02/24/2024 Psychiatry Refer ral Encounter Details Date Type Department Care Team (Late st Contact Info) Description 02/24/2024 Telephone [facility] [address] [place] [address] Veena Ibarra MD [address] [place] [address] Appointment (Psychiatry Referral) Allergies Active Allergy Reactions Criticality Noted Date Comments Bee Venom 02/21/2022 Food (See Comments) 02/21/2022 Sea food, chocolate Qs-Yozagvsjgq-Salhhsjnazgsn Edema airway High 2020 documented as of this encounter (statuses as of 02/25/2024) Medications Medication Sig Dispensed Refills Start Date [...] as of this encounter (statuses as of 02/25/2024) Active Problems Problem Noted Date Diagnosed Date Food insecurity 10/07/2023 Overview: Per [facility] Protocol No diagnosis on [place] I 07/06/2022 Adjustment disorder with depressed mood 03/24/20 Methamphetamine abuse 03/24/2022 Opioid abuse, in remission 03/24/2022 Homicidal ideation 07/04/2021 Tobacco use disorder 05/18/2021 Anxiety 02/16/2021 Moderate episode of recurrent major depressive d isorder 02/16/2021 Attention deficit hyperactiv ity disorder (ADHD), predominantly inattentive type 02/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 02/24/2024 documented in this encounter Plan of Treatment Upcoming Encounters Date Type Department Care Team (Late st Contact Info) Description 05/22/2024 1:20 PM EDT Office Visit [facility] [address] [facility] [place] [address] Josse Maurer MD [address] [facility] [place] [address] Health Maintenance Due Date Last [...] and were consensually agreed upon. Care Teams Laboratory Chief Relationship Specialty Start Date End Date Veena Ibarra MD [address] [place] [facility] [place] [address] PCP - General Family Medicine 03/22/22 documented as of this encounter
--- OUTSIDE RECORDS SUMMARY | 2024-03-14 07:53 | External Medical Summary | Summary of Care ---
Author Name Unknown Organization [facility] Address [address] [place] [address] Phone [phone] Care Team Providers Care Balloon Design Printer Name Role Phone Veena Ibarra MD Primary Care Provid er Reason for Visit * Reason Onset Date Comments Advice 02/24/2024 Encounter Details Date Type Department Care Team (Late st Contact Info) Description 02/24/2024 Telephone [facility] [address] [place] [address] Veena Ibarra MD [address] [place] [address] Advice Allergies Active Allergy Reactions Criticality Noted Date Comments Bee Venom 02/21/2022 Food (See Comments) 02/21/2022 Sea food, chocolate Uy-Kdqinkbaod-Ixianxpxauwlk Edema airway High 2020 documented as of this encounter (statuses as of 02/27/2024) Medications Medication Sig Dispensed Refills Start Date [...] as of this encounter (statuses as of 02/27/2024) Active Problems Problem Noted Date Diagnosed Date Food insecurity 10/07/2023 Overview: Per [facility] Protocol No diagnosis on [place] I 07/06/2022 Adjustment disorder with depressed mood 03/24/20 Methamphetamine abuse 03/24/2022 Opioid abuse, in remission 03/24/2022 Homicidal ideation 07/04/2021 Tobacco use disorder 05/18/2021 Anxiety 02/16/2021 Moderate episode of recurrent major depressive d isorder 02/16/2021 Attention deficit hyperactiv ity disorder (ADHD), predominantly inattentive type 02/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 Heart murmur 02/16/2021 Other schizophrenia 02/16/2021 documented as of this encounter (statuses as of 02/27/2024) Resolved Problems Problem Noted Date Diagnosed Date Resolved Date Suicidal ideations 05/18/2021 documented as of this encounter (statuses as of 02/27/2024) Immunizations Name Administration Dates Next Due TDAP [...] encounter Miscellaneous Notes * Telephone Encounter - Myranda Granda LPN [...] Description 05/22/2024 1:20 PM EDT Office Visit [facility] [address] [place] [address] Josse Maurer MD [address] [place] [address] Health Maintenance Due Date Last [...] and were consensually agreed upon. Care Teams Balloon Design Printer Relationship Specialty Start Date End Date Veena Ibarra MD [address] [address] PCP - General Family Medicine 03/22/22 documented as of this encounter
--- OUTSIDE RECORDS SUMMARY | 2024-03-14 07:53 | External Medical Summary | Summary of Care ---
Author Name Unknown Organization [facility] Address [address] [place] [address] Phone [phone] Care Team Providers Care Admissions Gate Attendant Name Role Phone Veena Ibarra MD Primary Care Provid er Reason for Visit * Reason Onset Date Comments Advice 02/24/2024 Encounter Details Date Type Department Care Team (Late st Contact Info) Description 02/24/2024 Telephone [facility] [address] [place] [address] Veena Ibarra MD [address] [place] [address] Advice Allergies Active Allergy Reactions Criticality Noted Date Comments Bee Venom 02/21/2022 Food (See Comments) 02/21/2022 Sea food, chocolate Ja-Ogqmhduewb-Hhhtcyrlqgmdg Edema airway High 2020 documented as of [...] Diagnosed Date Food insecurity 10/07/2023 Overview: Per [facility] Protocol No diagnosis on [place] I 07/06/2022 Adjustment disorder with depressed mood [...] encounter Miscellaneous Notes * Telephone Encounter - Josse Maurer MD [...] Description 05/22/2024 1:20 PM EDT Office Visit [facility] [address] [place] [facility] [place] [address] Josse Maurer MD [address] [place] [facility] [place] [address] Health Maintenance Due Date Last Done [...] and were consensually agreed upon. Care Teams Admissions Gate Attendant Relationship Specialty Start Date End Date Veena Ibarra MD [address] [address] PCP - General Family Medicine 03/22/22 documented as of this encounter
--- OUTSIDE RECORDS SUMMARY | 2024-03-14 07:53 | External Medical Summary | Summary of Care ---
Author Name Unknown Organization [facility] Address [address] [place] [address] Phone [phone] Care Team Providers Care Technical Systems Architect Name Role Phone Veena Ibarra MD Primary Care Provid er Reason for Visit * Reason Onset Date Comments Advice 02/24/2024 Encounter Details Date Type Department Care Team (Late st Contact Info) Description 02/24/2024 Telephone [facility] [address] [place] [address] Veena Ibarra MD [address] [place] [address] Advice Allergies Active Allergy Reactions Criticality Noted Date Comments Bee Venom 02/21/2022 Food (See Comments) 02/21/2022 Sea food, chocolate Ha-Nhhfkxmwqj-Rolnrmvwzttsa Edema airway High 2020 documented as of this encounter (statuses as of 03/04/2024) Medications Medication Sig Dispensed Refills Start Date [...] as of this encounter (statuses as of 03/04/2024) Active Problems Problem Noted Date Diagnosed Date Food insecurity 10/07/2023 Overview: Per [facility] Protocol No diagnosis on [place] I 07/06/2022 Adjustment disorder with depressed mood 03/24/20 Methamphetamine abuse 03/24/2022 Opioid abuse, in remission 03/24/2022 Homicidal ideation 07/04/2021 Tobacco use disorder 05/18/2021 Anxiety 02/16/2021 Moderate episode of recurrent major depressive d isorder 02/16/2021 Attention deficit hyperactiv ity disorder (ADHD), predominantly inattentive type 02/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 Heart murmur 02/16/2021 Other schizophrenia 02/16/2021 documented as of this encounter (statuses as of 03/04/2024) Resolved Problems Problem Noted Date Diagnosed Date Resolved Date Suicidal ideations 05/18/2021 documented as of this encounter (statuses as of 03/04/2024) Immunizations Name Administration Dates Next Due TDAP [...] Description 05/22/2024 1:20 PM EDT Office Visit [facility] [address] [place] [address] Josse Maurer MD [address] [place], [place] [id number] 09/03/2024 4:00 PM EST [facility] [address] [place] [address] Sushil Gray MD [address] [place] [address] Health Maintenance Due Date Last [...] and were consensually agreed upon. Care Teams Technical Systems Architect Relationship Specialty Start Date End Date Veena Ibarra MD [address] [place] [address] PCP - General Family Medicine 03/22/22 documented as of this encounter
--- OUTSIDE RECORDS SUMMARY | 2024-03-14 07:53 | External Medical Summary ---
Author Name Unknown Address Unknown Organization K01:[facility] [address] [facility] [address] Laboratory Report Ordering Provider Test Date Status RONAL KEENE 02/21/2024 15:26:00 Final Observation Date Value Abnormality Reference (Units ) Status SYNC LEUKOCYTES IN BLOOD BY AUTOMATED COUNT 02/21/2024 15:26:00 8.63 4.00-10.80 (K/uL) Final Segs 02/21/2024 15:26:00 56.9 40.0-75.0 (%) Final Lymphs % 02/21/2024 15:26:00 30.2 18.0-42.0 (%) Final Monos 02/21/2024 15:26:00 7.8 1.0-11.0 (%) Final Eosinophils 02/21/2024 15:26:00 3.9 0.0-6.0 (%) Final Basos 02/21/2024 15:26:00 0.9 0.0-2.0 (%) Final Immature Granulocyte, Percent 02/21/2024 15:26:00 0.3 0.0-2.0 (%) Final Absolute Segs 02/21/2024 15:26:00 4.90 1.80-7.70 (K/uL) Final Lymphs, absolute 02/21/2024 15:26:00 2.61 1.00-4.80 (K/ul) Final Monos, Abs 02/21/2024 15:26:00 0.67 0.00-1.10 (K/uL) Final Eos, Abs 02/21/2024 15:26:00 0.34 0.00-0.70 (K/uL) Final Basos, Abs 02/21/2024 15:26:00 0.08 0.00-0.20 (K/uL) Final Immature Granulocytes, Number 02/21/2024 15:26:00 0.03 0.00-0.20 (K/uL) Final [place]forming Location [facility] [place] [address] [facility] [address]
--- OUTSIDE RECORDS SUMMARY | 2024-03-14 07:53 | External Medical Summary | Summary of Care ---
Author Name Unknown Organization [facility] Address [address] [place] [address] Phone [phone] Care Team Providers Care Director Of Resource Development Name Role Phone Veena Ibarra MD Primary Care Provid er Reason for Visit * Reason Onset Date Comments Advice 02/24/2024 Encounter Details Date Type Department Care Team (Late st Contact Info) Description 02/24/2024 Telephone [facility] [address] [place] [address] Veena Ibarra MD [address] [place] [address] Advice Allergies Active Allergy Reactions Criticality Noted Date Comments Bee Venom 02/21/2022 Food (See Comments) 02/21/2022 Sea food, chocolate Xb-Hkwkkunxsq-Llwdtgoyfsanm Edema airway High 2020 documented as of [...] Diagnosed Date Food insecurity 10/07/2023 Overview: Per [facility] Protocol No diagnosis on [place] I 07/06/2022 Adjustment disorder with depressed mood [...] Description 05/22/2024 1:20 PM EDT Office Visit [facility] [address] [place] [facility] [place] [address] Josse Maurer MD [address] [place] [facility] [place] [address] Health Maintenance Due Date Last Done [...] and were consensually agreed upon. Care Teams Director Of Resource Development Relationship Specialty Start Date End Date Veena Ibarra MD [address] [address] PCP - General Family Medicine 03/22/22 documented as of this encounter
--- OUTSIDE RECORDS SUMMARY | 2024-03-14 07:53 | External Medical Summary | Summary of Care ---
Author Name Unknown Organization [facility] Address [address] [place] [address] Phone [phone] Care Team Providers Care Snow Ranger Name Role Phone Veena Ibarra MD Primary Care Provid er Reason for Referral * Evaluate & Treat - Unlimited Visits (Within 10 days (routine)) - Pending Review Specialty Diagnoses / Procedures Referred By Contyolette t Referred To Contact Psychiatry Diagnoses Moderate episode of recurrent major depressive disorder (HCC) Other schizophrenia (HCC) Anxiety Attention deficit hyperactivity disorder (ADHD), predominantly inattentive type Opioid abuse, in remission (HCC) Adjustment disorder with depressed mood Methamphetamine abuse (HCC) Josse Maurer MD [address] [place] [address] Referral ID Status Reason Start Date Expiration Date Visits Requested Visits Authorized [id number] Pending Review Specialty Services Required 02/21/[phone] Question Answer Referral Priority Within 10 days (routine) Where should this appointment be scheduled? [facility] Is this referral for medication management? Yes Reason for Referral Schizophrenia Reason for Visit * Reason Comments Dizziness Pt states that he is here for headaches, weight loss concerns and dizzy spells. Encounter Details Date Type Department Care Team (Latest Contact Info) Description 02/21/2024 3:00 PM EDT Office Visit [facility] [address] [place] [phone] Josse Maurer MD [address] [place] [address] Loss of weight*; Moderate episode of recurrent major depressive disorder (HCC); Other schizophrenia (HCC); Anxiety; Attention deficit hyperactivity disorder (ADHD), predominantly inattentive type; Tobacco use disorder; Opioid abuse, in remission (HCC); Adjustment disorder with depressed mood; Methamphetamine abuse (HCC); Dizziness; SOB (shortness of breath) Allergies Active Allergy Reactions Criticality Noted Date Comments Bee Venom 02/21/2022 Food (See Comments) 02/21/2022 Sea food, chocolate Ef-Obsgbukqmc-Aeobrtrwpzvni Edema airway High 2020 documented as of this encounter (statuses as of 02/21/2024) Medications Medication Sig Dispensed Refills Start Date End Date Status EpiPen 2-Adam 0.3 MG/0.3ML Injection Solution Auto-injectorIndic ations:Moderate episode of recurrent major depressive disorder (HCC),Other schizophrenia (HCC),Anxiety,Atte ntion deficit hyperactivity disorder (ADHD), predominantly inattentive type For a severe reaction: Inject in outer thigh following instructions on package and go to the Emergency room. 2 Each 3 04/06/2022 Active cloNIDine HCl 0.1 MG Oral Tablet (Catapres)Indicati ons:Moderate episode of recurrent major depressive disorder (HCC),Other schizophrenia (HCC),Anxiety,Atte ntion deficit hyperactivity disorder (ADHD), predominantly inattentive type Take 1 Tablet by mouth 2 times a day as needed for Other (agitation). 60 Tablet 2 02/21/2024 Active FLUoxetine HCl 20 MG Oral Capsule (PROzac)Indication s:Moderate episode of recurrent major depressive disorder (HCC),Other schizophrenia (HCC),Anxiety,Atte ntion deficit hyperactivity disorder (ADHD), predominantly inattentive type Take 1 Capsule by mouth in the morning. 90 Capsule 1 02/21/2024 Active hydrOXYzine HCl 50 MG Oral TabletIndications: Moderate episode of recurrent major depressive disorder (HCC),Other schizophrenia (HCC),Anxiety,Atte ntion deficit hyperactivity disorder (ADHD), predominantly inattentive type Take 1 Tablet by mouth every 6 hours as needed for Anxiety. 60 Tablet 5 02/21/2024 Active Prazosin HCl 1 MG Oral Capsule (Minipress)Indicat ions:Moderate episode of recurrent major depressive disorder (HCC),Other schizophrenia (HCC),Anxiety,Atte ntion deficit hyperactivity disorder (ADHD), predominantly inattentive type Take 1 Capsule by mouth every night at bedtime. 90 Capsule 1 02/21/2024 Active Albuterol Sulfate HFA 108 (90 Base) MCG/ACT Inhalation Aerosol Solution Inhale 2 Puffs by mouth every 6 hours as needed (chest tightness, SOB). 18 g 3 02/21/2024 Active hydrOXYzine HCl 50 MG Oral TabletIndications: Moderate episode of recurrent major depressive disorder (HCC),Other schizophrenia (HCC),Anxiety,Atte ntion deficit hyperactivity disorder (ADHD), predominantly inattentive type Take by mouth 1 Tablet every 6 hours as needed for Anxiety. 30 Tablet 5 04/06/2022 4 Discontinu ed(Refill) cloNIDine HCl 0.1 MG Oral Tablet (Catapres)Indicati ons:Moderate episode of recurrent major depressive disorder (HCC),Other schizophrenia (HCC),Anxiety,Atte ntion deficit hyperactivity disorder (ADHD), predominantly inattentive type Take by mouth 1 Tablet 2 times a day as needed for Other (agitation). 30 Tablet 5 04/06/2022 4 Discontinu ed(Refill) FLUoxetine HCl 20 MG Oral Capsule (PROzac)Indication s:Moderate episode of recurrent major depressive disorder (HCC),Other schizophrenia (HCC),Anxiety,Atte ntion deficit hyperactivity disorder (ADHD), predominantly inattentive type Take by mouth 1 Capsule in the morning. 30 Capsule 5 04/06/2022 4 Discontinu ed(Refill) Prazosin HCl 1 MG Oral Capsule (Minipress)Indicat ions:Moderate episode of recurrent major depressive disorder (HCC),Other schizophrenia (HCC),Anxiety,Atte ntion deficit hyperactivity disorder (ADHD), predominantly inattentive type Take by mouth 1 Capsule before bedtime. 30 Capsule 5 04/06/2022 4 Discontinu ed(Refill) documented as of this encounter (statuses as of 02/21/2024) Active Problems Problem Noted Date Diagnosed Date Food insecurity 10/07/2023 Overview: Per [facility] Protocol No diagnosis on [place] I 07/06/2022 Adjustment disorder with depressed mood 03/24/20 Methamphetamine abuse 03/24/2022 Opioid abuse, in remission 03/24/2022 Homicidal ideation 07/04/2021 Tobacco use disorder 05/18/2021 Anxiety 02/16/2021 Moderate episode of recurrent major depressive d isorder 02/16/2021 Attention deficit hyperactiv ity disorder (ADHD), predominantly inattentive type 02/16/2021 Heart murmur 02/16/2021 Other schizophrenia 02/16/2021 documented as of this encounter (statuses as of 02/21/2024) Resolved Problems Problem Noted Date Diagnosed Date Resolved Date Suicidal ideations 05/18/2021 documented as of this encounter (statuses as of 02/21/2024) Immunizations Name Administration Dates Next Due TDAP (age 10 and older)(Boostrix) 04/28/2021 documented as of this encounter Social History Tobacco Use Types Packs/Day Years Used Date Smoking Tobacco: Every Day Cigarettes Smokeless Tobacco: Former Chew Tobacco Cessation:Ready to Q uit: Not Asked; Counseling Given: Not Answered Comments:vapes Alcohol Use Standard Drinks/Week Comments Not [...] on file documented as of this encounter Last Filed Vital Signs Vital Sign Reading Time Taken Comments Blood Pressure 114/74 02/21/2024 2:55 PM EDT Pulse 102 02/21/2024 2:55 PM EDT Temperature 36.5 C (97.7 F) 02/21/2024 2:55 PM ED T Respiratory Rate 16 02/21/2024 2:55 PM EDT Oxygen Saturation 96% 02/21/2024 2:55 PM EDT Inhaled Oxygen Concentration - - Weight 57 kg (125 lb 9.6 oz) 02/21/2024 2:55 PM EDT Height 172.7 cm (5' 8") 02/21/2024 2:55 PM EDT Body Mass Index 19.1 02/21/2024 2:55 PM EDT documented in this encounter Progress Notes * Josse Maurer MD - 02/21/2024 3:32 PM EDT Subjective Dwaine Lan is a 23 year old male. Chief Complaint Patient presents with Dizziness Pt states that he is here for headaches, weight loss concerns and dizzy spells. HPI: Dizziness Associated symptoms: headaches and shortness of breath (on exertion) Associated symptoms: no chest pain, no palpitations and no weakness Here for dizzy spells, SIDDIQUI, weight loss Known significant mood disorder, schizophrenia, depression anxiety , ADHD Hadnt taken his meds about 10 mo No recent psych f/u either Hx of drug use Couldn't sleep well for many months now Refill meds today and referral to psych Noticed weight loss last 6 mo , will do blood tests Also has mild SOB or chest tightness with activity Known intermittent ashtma Smoking + Poor appetite, not nutritious , usually one meal junk food Does not drink enough water PMH: Patient Active Problem List Diagnosis Code Anxiety F41.9 Moderate episode of recurrent major depressive disorder (HCC) F33.1 Attention deficit hyperactivity disorder (ADHD), predominantly inattentive type F90.0 Heart murmur R01.1 Other schizophrenia ([facility]) F20.89 Tobacco use disorder F17.200 Homicidal ideation R45.850 Adjustment disorder with depressed mood F43.21 Methamphetamine abuse ([facility]) F15.10 Opioid abuse, in remission ([facility]) F11.11 No diagnosis on [place] I Z03.89 Food insecurity Z59.41 Current Outpatient Medications Medication Sig Dispense Refill EpiPen 2-Adam 0.3 MG/0.3ML Injection Solution Auto-injector For a severe reaction: Inject in outer thigh following instructions on package and go to the Emergency room. 2 Each 3 cloNIDine HCl 0.1 MG Oral Tablet (Catapres) Take 1 Tablet by mouth 2 times a day as needed for Other (agitation). 60 Tablet 2 FLUoxetine HCl 20 MG Oral Capsule (PROzac) Take 1 Capsule by mouth in the morning. 90 Capsule 1 hydrOXYzine HCl 50 MG Oral Tablet Take 1 Tablet by mouth every 6 hours as needed for Anxiety. 60 Tablet 5 Prazosin HCl 1 MG Oral Capsule (Minipress) Take 1 Capsule by mouth every night at bedtime. 90 Capsule 1 Albuterol Sulfate HFA 108 (90 Base) MCG/ACT Inhalation Aerosol Solution Inhale 2 Puffs by mouth every 6 hours as needed (chest tightness, SOB). 18 g 3 No current facility-administered medications for this visit. Past Medical History: Diagnosis Date Suicidal ideations 05/18/2021 Past Surgical History: Procedure Laterality Date NONE Review of patient's allergies indicates: Allergen Reactions Nyquil Hbp Cold & Flu [Dx-Zmohjimahw-Ngizpyquwxlex] Edema airway Bee Venom Food (See Comments) Sea food, chocolate Family History Problem Relation Age of Onset ADD / ADHD Mother Bipolar Disorder Mother ADD / ADHD Sister Bipolar Disorder Sister Family Status Relation Status Mo (Not Specified) Sis (Not Specified) Social History Socioeconomic History Marital status: Single Spouse name: Not on file Number of children: Not on file Years of education: Not on file Highest education level: Not on file Occupational History Not on file Tobacco Use Smoking status: Every Day Current packs/day: 1.00 Types: Cigarettes Smokeless tobacco: Former Types: Chew Tobacco comments: vapes Vaping Use Vaping Use: Former Substances: Nicotine, Flavoring Devices: Pre-filled or refillable cartridge Substance and Sexual Activity Alcohol use: Not Currently Comment: on occasion Drug use: Yes Frequency: 7.0 times per week Types: Marijuana, Cocaine, Methamphetamines, Heroin Comment: medical marijuana Sexual activity: Not on file Other Topics Concern Not on file Social History Narrative Not on file Social Determinants of Health Financial Resource Strain: Not on file Food Insecurity: No Food Insecurity (04/28/2021) Hunger Vital Sign Worried About Running Out of Food in the Last Year: Never true Ran Out of Food in the Last Year: Never true Transportation Needs: Not on file Physical Activity: Not on file Stress: Not on file Social Connections: Not on file Intimate Partner Violence: Not on file Housing Stability: Not on file Review of Systems Constitutional: Positive for activity change (tired), appetite change (in general poor), fatigue and unexpected weight change (weight loss). Negative for chills, diaphoresis and fever. Respiratory: Positive for cough (occ cough), chest tightness (on exertion) and shortness of breath (on exertion). Negative for wheezing. Cardiovascular: Negative for chest pain, palpitations and leg swelling. Gastrointestinal: Negative for abdominal distention and abdominal pain. Musculoskeletal: Negative for arthralgias, gait problem and joint swelling. Skin: Negative for color change and pallor. Allergic/Immunologic: Positive for environmental allergies. Neurological: Positive for dizziness, light-headedness and headaches. Negative for weakness. Psychiatric/Behavioral: Positive for decreased concentration, dysphoric mood and sleep disturbance.Negative for agitation and behavioral problems. The patient is nervous/anxious. Objective BP 114/74 | Pulse 102 | Temp 36.5 C (97.7 F) (Temporal Artery) | Resp 16 | Ht 1.727 m (5' 8") |Wt 57 kg (125 lb 9.6 oz) | SpO2 96% | BMI 19.10 kg/m | BSA 1.65 m Physical Exam Constitutional: General: He is not in acute distress. Appearance: Normal appearance. He is not ill-appearing, toxic-appearing or diaphoretic. HENT: Head: Normocephalic and atraumatic. Nose: Nose normal. Eyes: Extraocular Movements: Extraocular movements intact. Cardiovascular: Rate and Rhythm: Regular rhythm. Tachycardia present. Pulses: Normal pulses. Heart sounds: No murmur heard. Pulmonary: Effort: Pulmonary effort is normal. No respiratory distress. Breath sounds: No stridor. No wheezing, rhonchi or rales. Chest: Chest wall: No tenderness. Musculoskeletal: Right lower leg: No edema. Left lower leg: No edema. Neurological: General: No focal deficit present. Mental Status: He is alert and oriented to person, place, and time. Psychiatric: Comments: Mood disorder, depression anxiety ASSESSMENT/PLAN: Loss of weight (Primary) - TSH WITH FREE T4 IF INDICATED; Future; Expected date: 02/21/2024 - COMPREHENSIVE METABOLIC PANEL; Future; Expected date: 02/21/2024 - CBC WITH WBC DIFFERENTIAL; Future; Expected date: 02/21/2024 Moderate episode of recurrent major depressive disorder (HCC) - cloNIDine HCl 0.1 MG Oral Tablet (Catapres); Take 1 Tablet by mouth 2 times a day as needed for Other (agitation). - FLUoxetine HCl 20 MG Oral Capsule (PROzac); Take 1 Capsule by mouth in the morning. - hydrOXYzine HCl 50 MG Oral Tablet; Take 1 Tablet by mouth every 6 hours as needed for Anxiety. - Prazosin HCl 1 MG Oral Capsule (Minipress); Take 1 Capsule by mouth every night at bedtime. - ADULT/PEDS PSYCHIATRY REFERRAL OP Other schizophrenia (HCC) - cloNIDine HCl 0.1 MG Oral Tablet (Catapres); Take 1 Tablet by mouth 2 times a day as needed for Other (agitation). - FLUoxetine HCl 20 MG Oral Capsule (PROzac); Take 1 Capsule by mouth in the morning. - hydrOXYzine HCl 50 MG Oral Tablet; Take 1 Tablet by mouth every 6 hours as needed for Anxiety. - Prazosin HCl 1 MG Oral Capsule (Minipress); Take 1 Capsule by mouth every night at bedtime. - ADULT/PEDS PSYCHIATRY REFERRAL OP Anxiety - cloNIDine HCl 0.1 MG Oral Tablet (Catapres); Take 1 Tablet by mouth 2 times a day as needed for Other (agitation). - FLUoxetine HCl 20 MG Oral Capsule (PROzac); Take 1 Capsule by mouth in the morning. - hydrOXYzine HCl 50 MG Oral Tablet; Take 1 Tablet by mouth every 6 hours as needed for Anxiety. - Prazosin HCl 1 MG Oral Capsule (Minipress); Take 1 Capsule by mouth every night at bedtime. - ADULT/PEDS PSYCHIATRY REFERRAL OP Attention deficit hyperactivity disorder (ADHD), predominantly inattentive type - cloNIDine HCl 0.1 MG Oral Tablet (Catapres); Take 1 Tablet by mouth 2 times a day as needed for Other (agitation). - FLUoxetine HCl 20 MG Oral Capsule (PROzac); Take 1 Capsule by mouth in the morning. - hydrOXYzine HCl 50 MG Oral Tablet; Take 1 Tablet by mouth every 6 hours as needed for Anxiety. - Prazosin HCl 1 MG Oral Capsule (Minipress); Take 1 Capsule by mouth every night at bedtime. - ADULT/PEDS PSYCHIATRY REFERRAL OP Tobacco use disorder Opioid abuse, in remission ([facility]) - ADULT/PEDS PSYCHIATRY REFERRAL OP Adjustment disorder with depressed mood - ADULT/PEDS PSYCHIATRY REFERRAL OP Methamphetamine abuse (HCC) - ADULT/PEDS PSYCHIATRY REFERRAL OP Dizziness - D-DIMER; Future; Expected date: 02/21/2024 SOB (shortness of breath) - D-DIMER; Future; Expected date: 02/21/2024 Other orders - Albuterol Sulfate HFA 108 (90 Base) MCG/ACT Inhalation Aerosol Solution; Inhale 2 Puffs by mouth every 6 hours as needed (chest tightness, SOB). Follow Up: Return in about 3 months (around 05/22/2024) for Clinic Visit. | For: Clinic Visit | Check-out note: Refer to psychiatrist And labs today With me or PCP Resume meds F/u with psych F/u blood tests Better diet , discussed Hydration enough Josse Maurer MD documented in this encounter Nursing Notes * Myranda Granda LPN - 02/21/2024 2:55 PM EDT Dwaine Lan is a 23 year old male who presents today for Chief Complaint Patient presents with Dizziness Pt states that he is here for headaches, weight loss concerns and dizzy spells. documented in this encounter Plan of Treatment Upcoming Encounters Date Type Department Care Team (Late st Contact Info) Description 05/22/2024 1:20 PM EDT Office Visit [facility] [address] [place] [phone] Josse Maurer MD [address] [place] [address] Pending Results Name Type Priority Associated Diagnoses Date /Time TSH WITH FREE T4 IF INDICATED Lab Routine Loss of weight 02/21/2024 3:26 PM EDT COMPREHENSIVE METABOLIC PANEL Lab Routine Loss of weight 02/21/2024 3:26 PM EDT CBC WITH WBC DIFFERENTIAL Lab Routine Loss of weight 02/21/2024 3:26 PM EDT Scheduled Orders Name Type Priority Associated Diagnoses Orde r Schedule TSH WITH FREE T4 IF INDICATED Lab Routine Loss of weight Expected: 02/21/2024 (Approximate), Expires: 02/20/2025 COMPREHENSIVE METABOLIC PANEL Lab Routine Loss of weight Expected: 02/21/2024 (Approximate), Expires: 02/20/2025 CBC WITH WBC DIFFERENTIAL Lab Routine Loss of weight Expected: 02/21/2024 (Approximate), Expires: 02/20/2025 D-DIMER Lab Routine Dizziness SOB (shortness of breath) Expected: 02/21/2024 (Approximate), Expires: 02/20/2025 Scheduled Referrals Name Type Priority Associated Diagnoses Orde r Schedule ADULT/PEDS PSYCHIATRY REFERRAL OP Referral Within 10 days (routine) Moderate episode of recurrent major depressive disorder (HCC) Other schizophrenia (HCC) Anxiety Attention deficit hyperactivity disorder (ADHD), predominantly inattentive type Opioid abuse, in remission (HCC) Adjustment disorder with depressed mood Methamphetamine abuse (HCC) Ordered: 02/21/2024 Health Maintenance Due Date Last Done Comments [...] Not on filedocumented as of this encounter Visit Diagnoses Diagnosis Loss of weight- Primary Moderate episode of recurrent major depressive disorder (HCC) Other schizophrenia (HCC) Anxiety Anxiety state, unspecified Attention deficit hyperactivity disorder (ADHD), predominantly inattentive type Tobacco use disorder Opioid abuse, in remission (HCC) Opioid abuse, in remission Adjustment disorder with depressed mood Methamphetamine abuse (HCC) Nondependent amphetamine or related acting sympathomimetic abuse, unspecified Dizziness Dizziness and giddiness SOB (shortness of breath) Shortness of breath documented in this encounter Advance Directives Latest Code Status [...] and were consensually agreed upon. Care Teams Snow Ranger Relationship Specialty Start Date End Date Veena Ibarra MD [address] [facility] [place] [address] PCP - General Family Medicine 03/22/22 documented as of this encounter
--- OUTSIDE RECORDS SUMMARY | 2024-03-14 07:53 | External Medical Summary | Summary of Care ---
Author Name Unknown Organization [facility] Address [address] [place] [address] Phone [phone] Care Team Providers Care Nozzle Cement Sprayer Helper Name Role Phone Veena Ibarra MD Primary Care Provid er Reason for Visit * Reason Onset Date Comments Advice 02/24/2024 Encounter Details Date Type Department Care Team (Late st Contact Info) Description 02/24/2024 Telephone [facility] [address] [place] [address] Veena Ibarra MD [address] [place] [address] Advice Allergies Active Allergy Reactions Criticality Noted Date Comments Bee Venom 02/21/2022 Food (See Comments) 02/21/2022 Sea food, chocolate Qw-Cvaruuoxit-Demenulmivwjx Edema airway High 2020 documented as of this encounter (statuses as of 03/06/2024) Medications Medication Sig Dispensed Refills Start Date [...] as of this encounter (statuses as of 03/06/2024) Active Problems Problem Noted Date Diagnosed Date Food insecurity 10/07/2023 Overview: Per [email or web address] Protocol No diagnosis on [place] I 07/06/2022 Adjustment disorder with depressed mood 03/24/20 Methamphetamine abuse 03/24/2022 Opioid abuse, in remission 03/24/2022 Homicidal ideation 07/04/2021 Tobacco use disorder 05/18/2021 Anxiety 02/16/2021 Moderate episode of recurrent major depressive d isorder 02/16/2021 Attention deficit hyperactiv ity disorder (ADHD), predominantly inattentive type 02/16/2021 Heart murmur 02/16/2021 Other schizophrenia 02/16/2021 documented as of this encounter (statuses as of 03/06/2024) Resolved Problems Problem Noted Date Diagnosed Date Resolved Date Suicidal ideations 05/18/2021 documented as of this encounter (statuses as of 03/06/2024) Immunizations Name Administration Dates Next Due TDAP [...] Description 05/22/2024 1:20 PM EDT Office Visit [facility] [address] [place] [address] Josse Maurer MD [address] [place] [address] 09/03/2024 4:00 PM EST Telemedicine Psychiatry Sal [facility] [address] [place] [address] Sushil Gray MD [address] [place] [address] Health Maintenance Due Date Last [...] and were consensually agreed upon. Care Teams Nozzle Cement Sprayer Helper Relationship Specialty Start Date End Date Veena Ibarra MD [address] [place] [address] PCP - General Family Medicine 03/22/22 documented as of this encounter
--- OUTSIDE RECORDS SUMMARY | 2024-03-14 07:53 | External Medical Summary | Summary of Care ---
Author Name Unknown Organization [facility] Address [address] [place] [address] Phone [phone] Care Team Providers Care Lifestyle Director Name Role Phone Veena Ibarra MD Primary Care Provid er Reason for Visit * Reason Comments Outpatient Testing Encounter Details Date Type Department Care Team (Late st Contact Info) Description 02/21/2024 3:30 PM EDT [facility] [address] [place] [address] [facility] [address] [place] [address] Loss of weight Allergies Active Allergy Reactions Criticality Noted Date Comments Bee Venom 02/21/2022 Food (See Comments) 02/21/2022 Sea food, chocolate Pv-Syodpprasi-Aarqroxjywxot Edema airway High 2020 documented as of [...] Diagnosed Date Food insecurity 10/07/2023 Overview: Per [facility] Protocol No diagnosis on [place] I 07/06/2022 Adjustment disorder with depressed mood [...] Description 05/22/2024 1:20 PM EDT Office Visit [facility] [address] [place] [phone] Josse Maurer MD [address] [place] [address] Pending Results Name Type Priority Associated Diagnoses Date /Time TSH WITH FREE T4 IF INDICATED Lab Routine Loss of weight 02/21/2024 3:26 PM EDT COMPREHENSIVE METABOLIC PANEL Lab Routine Loss of weight 02/21/2024 3:26 PM EDT CBC WITH WBC DIFFERENTIAL Lab Routine Loss of weight 02/21/2024 3:26 PM EDT CBC Lab Routine Loss of weight 02/21/2024 3:26 PM EDT DIFFERENTIAL, AUTOMATED Lab Routine Loss of weight 02/21/2024 3:26 PM EDT Health Maintenance Due Date Last Done Comments [...] this encounter Visit Diagnoses Diagnosis Loss of weight documented in this encounter Advance Directives Latest [...] and were consensually agreed upon. Care Teams Lifestyle Director Relationship Specialty Start Date End Date Veena Ibarra MD [address] [place] [facility] [place] [address] PCP - General Family Medicine 03/22/22 documented as of this encounter
--- OUTSIDE RECORDS SUMMARY | 2024-03-14 07:53 | External Medical Summary | Summary of Care ---
Author Name Unknown Organization [facility] Address [address] [place] [address] Phone [phone] Care Team Providers Care Marble Installation Helper Name Role Phone Veena Ibarra MD Primary Care Provid er Reason for Visit * Reason Onset Date Comments Appointment 02/24/2024 Psychiatry Refer ral Encounter Details Date Type Department Care Team (Late st Contact Info) Description 02/24/2024 Telephone [facility] [address] [place] [address] Veena Ibarra MD [address] [place] [address] Appointment (Psychiatry Referral) Allergies Active Allergy Reactions Criticality Noted Date Comments Bee Venom 02/21/2022 Food (See Comments) 02/21/2022 Sea food, chocolate Bb-Meastezaum-Gvapojzzjowhl Edema airway High 2020 documented as of this encounter (statuses as of 02/28/2024) Medications Medication Sig Dispensed Refills Start Date [...] as of this encounter (statuses as of 02/28/2024) Active Problems Problem Noted Date Diagnosed Date Food insecurity 10/07/2023 Overview: [facility] Protocol No diagnosis on [place] [facility] 07/06/2022 Adjustment disorder with depressed mood 03/24/20 Methamphetamine abuse 03/24/2022 Opioid abuse, in remission 03/24/2022 Homicidal ideation 07/04/2021 Tobacco use disorder 05/18/2021 Anxiety 02/16/2021 Moderate episode of recurrent major depressive d isorder 02/16/2021 Attention deficit hyperactiv ity disorder (ADHD), predominantly inattentive type 02/16/2021 Heart murmur 02/16/2021 Other schizophrenia 02/16/2021 documented as of this encounter (statuses as of 02/28/2024) Resolved Problems Problem Noted Date Diagnosed Date Resolved Date Suicidal ideations 05/18/2021 documented as of this encounter (statuses as of 02/28/2024) Immunizations Name Administration Dates Next Due TDAP [...] Telephone Encounter - Norma Mcknight OSA - 02/28/2024 1:05 PM EDT Done. 02/28/2024 * Telephone Encounter - Norma Mcknight OSA - 02/24/2024 10:37 AM EDT LMOM to schedule Psychiatry Referral. 02/24/2024 documented in this encounter Plan of Treatment Upcoming Encounters Date Type Department Care Team (Late st Contact Info) Description 03/02/2024 3:00 PM EDT Laboratory Laboratory, [place] [address] [place] [phone] [facility] [address] [place] [address] 05/22/2024 1:20 PM EDT Office Visit [facility], [place] [address] [place] [phone] Josse Maurer MD [address], [place] [phone] 09/03/2024 4:00 PM EST [facility] [address] [place] [address] Sushil Gray MD [address] [place] [address] Health Maintenance Due Date Last [...] and were consensually agreed upon. Care Teams Marble Installation Helper Relationship Specialty Start Date End Date Veena Ibarra MD [address] [place] [address] PCP - General Family Medicine 03/22/22 documented as of this encounter
--- OUTSIDE RECORDS SUMMARY | 2024-03-14 07:54 | External Medical Summary ---
Author Name Unknown Address Unknown Organization [id number]:LABORATORY [facility] [place] - [facility] [address] [facility] [address] [facility] [address] Laboratory Report Ordering Provider Test Date Status RONAL KEENE 02/21/2024 15:26:00 Final Observation Date Value Abnormality Reference (Units ) Status WBC, Total 02/21/2024 15:26:00 8.63 4.00-10.80 (K/uL) Final RBC 02/21/2024 15:26:00 4.28 4.50-5.25 (M/uL) Final Hemoglobin 02/21/2024 15:26:00 13.7 Below low normal 14.0-16.8 (g/dL) Final HCT 02/21/2024 15:26:00 41.6 40.0-48.4 (%) Final MCV 02/21/2024 15:26:00 97.2 82.0-99.5 (fL) Final MCH 02/21/2024 15:26:00 32.0 27.0-34.0 (pg) Final MCHC 02/21/2024 15:26:00 32.9 32.0-36.0 (g/dL) Final RDW 02/21/2024 15:26:00 12.1 11.5-15.5 (%) Final Platelets 02/21/2024 15:26:00 305 140-400 (K/uL) Final MPV 02/21/2024 15:26:00 10.2 6.6-11.1 (fL) Final Nucleated erythrocytes/100 leukocytes [Ratio] in Blood by Automated count 02/21/2024 15:26:00 0 <=0 (/100 WBCs) Final Performing Location LABORATORY [facility] - [address] [place] [address]
--- OUTSIDE RECORDS SUMMARY | 2024-03-14 07:54 | External Medical Summary ---
Author Name Unknown Address Unknown Organization [id number]:LABORATORY [facility] [place] - [address] [facility] [address] Laboratory Report Ordering Provider Test Date Status RONAL KEENE 02/21/2024 15:26:00 Final Observation Date Value Abnormality Reference (Units ) Status BUN 02/21/2024 15:26:00 12 6-20 (mg/dL) Final Creatinine 02/21/2024 15:26:00 1.0 0.6-1.2 (mg/dL) Final Glomerular filtration rate/1.73 sq M.predicted [Volume Rate/Area] in Serum, Plasma or Blood by Creatinine-based formula (CKD-EPI) 02/21/2024 15:26:00 >90 >=60 (mL/min) Final eGFR is calculated based on the CKD-EPI 2020 equation Sodium 02/21/2024 15:26:00 142 135-146 (m mol/L) Final Potassium 02/21/2024 15:26:00 3.8 3.5-5.1 (m mol/L) Final Cl 02/21/2024 15:26:00 104 98-107 (mm ol/L) Final CO2 02/21/2024 15:26:00 27 22-32 (mmo l/L) Final Anion gap 02/21/2024 15:26:00 11 7-15 (mmol /L) Final Glucose 02/21/2024 15:26:00 61 Below low normal 70- 120 (mg/dL) Final Albumin 02/21/2024 15:26:00 4.6 3.8-5.0 (g /dL) Final AST (Aspartate aminotransferase) 02/21/2024 15:26:00 13 10-50 (U/L) Fin al Alk Phos 02/21/2024 15:26:00 79 35-130 (U/ L) Final Bilirubin, Total 02/21/2024 15:26:00 0.5 <=1 .2 (mg/dL) Final Calcium 02/21/2024 15:26:00 9.7 8.4-10.2 ( mg/dL) Final Protein 02/21/2024 15:26:00 6.9 6.0-8.3 (g /dL) Final ALT (Alanine aminotransferase) 02/21/2024 15:26:00 10 10-50 (U/L) Flaco irvin Performing Location LABORATORY [facility] [place] - [facility] [address] [facility] [address]
--- OUTSIDE RECORDS SUMMARY | 2024-03-14 07:54 | External Medical Summary ---
Author Name Unknown Address Unknown Organization K01[place] [address] [facility] [place], [place] [address] Laboratory Report Ordering Provider Test Date Status MYRONALEXRONAL 02/21/2024 15:26:00 Final Observation Date Value Abnormality Reference (Units ) Status TSH 02/21/2024 15:26:00 1.17 0.27-4.20 (uIU/mL) Final Performing Location LABORATORY [facility] - [address] [place], [place] [address]
--- NOTE | 2024-03-14 09:42 | Critical Care Progress Note ---
Date of Service March 14, 2024 Assessment & Plan (1) Polysubstance overdose: (2) Urinary retention: (3) Hypotension due to medication: (4) Suicide attempt: Plan Reason Critically Ill: 23 YOM presents via EMS for polysubstance overdose of unkown amount and unknown medications- presumed as per HPI meds. No requiring vasopressor support. Neuro - Suicide attempt by ingestion, Encephalopathy CAM ICU: - Suicide precautions- 302 - patient can not leave AMA Cardiac - Shock secondary to ingestion: Resolved - No evidence of organ dysfunction Respiratory - No acute needs - Continue to monitor respiratory status GI - No acute needs RENAL/LYTES - No acute needs - Patient without AGAP and HCO3 normal - Urinary retention: Straight cath however it was only for amount of 400 and patient not complaining of hesitancy/urgency, will wait till bladder scan is approaching 1 L and if patient symptomatic ENDO - No acute needs HEME - No acute needs ID - No concern at this time for infectious etiology LINES/IV ACCESS - PIV Continue use of these lines DVT PROPHYLAXIS - SCDS DISPO: Stable for downgrade out of ICU Admission and Anticipated Discharge Date Admission Date: March 13, 2024 Subjective Easily arousable Physical Exam Physical Exam: General: Arouses to voice, nontoxic Skin: Warm, dry, Head: Atraumatic Ears, nose, mouth and throat: airway patent Cardiovascular: Normal peripheral perfusion Respiratory: no respiratory distress Gastrointestinal: Non distended Musculoskeletal: No deformity Results & Data Results & Data Vital Signs (Past 12 Hours) Vital Signs Pulse Resp BP Pulse Ox 03/14/24 06:00 98/65 L 03/14/24 06:00 57 L 14 97 03/14/24 05:30 64 19 97 03/14/24 05:00 105/66 03/14/24 05:00 50 L 8 L 98 03/14/24 04:30 55 L 14 98 03/14/24 04:00 102/66 03/14/24 04:00 52 L 11 L 98 03/14/24 03:00 108/68 03/14/24 03:00 59 L 17 99 03/14/24 02:00 56 L 12 98 03/14/24 02:00 101/66 03/14/24 01:00 69 14 99 03/14/24 01:00 107/70 03/14/24 00:00 99/63 L 03/14/24 00:00 55 L 12 98 03/14/24 00:00 60 03/13/24 23:00 58 L 13 99 03/13/24 23:00 102/68 03/13/24 22:00 56 L 11 L 97 03/13/24 22:00 101/65 Critical Care Results & Data Vital Signs (Past 12 Hours) Vital Signs Pulse Resp BP Pulse Ox 03/14/24 06:00 98/65 L 03/14/24 06:00 57 L 14 97 03/14/24 05:30 64 19 97 03/14/24 05:00 105/66 03/14/24 05:00 50 L 8 L 98 03/14/24 04:30 55 L 14 98 03/14/24 04:00 102/03/14/24 04:00 52 L 11 L 98 03/14/24 03:00 108/68 03/14/24 03:00 59 L 17 99 03/14/24 02:00 56 L 12 98 03/14/24 02:00 101/03/14/24 01:00 69 14 99 03/14/24 01:00 107/70 03/14/24 00:00 99/63 L 03/14/24 00:00 55 L 12 98 03/14/24 00:00 60 03/13/24 23:00 58 L 13 99 03/13/24 23:00 102/68 03/13/24 22:00 56 L 11 L 97 03/13/24 22:00 101/65 Lab & Micro Results (Past 24 Hours) RBC 3.82 M/uL (4.70-6.10) L 03/14/24 WBC 9.07 K/ul (4.8-10.8) 03/14/24 Hgb 12.0 g/dl (14.0-18.0) L 03/14/24 Hct 35.9 % (42.0-52.0) L 03/14/24 MCV 94.0 fL (80.0-100.0) 03/14/24 MCH 31.4 pg (25.0-34.0) 03/14/24 MCHC 33.4 g/dL (32.0-36.0) 03/14/24 RDW Standard Deviation 41.2 fL (36.4-46.3) 03/14/24 RDW Coefficient of Variation 12.0 % (11.5-14.5) 03/14/24 Plt Count 215 K/uL (130-400) 03/14/24 MPV 9.3 fL (9.4-12.4) L 03/14/24 Na 137 mmol/L (136-145) 03/14/24 K 4.1 mmol/L (3.5-5.1) 03/14/24 Cl 109 mmol/L (98-107) H 03/14/24 CO2 26 mmol/L (21-32) 03/14/24 Anion Gap 2 (3-11) L 03/14/24 BUN 10 mg/dl (6-23) 03/14/24 Creatinine 0.88 mg/dl (0.6-1.4) 03/14/24 Estimated GFR ( Amer) 141.3 ml/min 03/14/24 Estimated GFR (Non-Af Amer) 121.9 ml/min 03/14/24 BUN/Creatinine Ratio 11.4 (10-20) 03/14/24 Glu 90 mg/dl (70-99(Fasting)) 03/14/24 Ca 7.9 mg/dl (8.6-10.3) L 03/14/24 Phosphorus Level 3.5 mg/dl (2.5-4.9) 03/14/24 Total Bilirubin 0.3 mg/dl (0.2-1.0) 03/14/24 AST 40 U/L (13-39) H 03/14/24 ALT 43 U/L (7-52) 03/14/24 Alkaline Phosphatase 52 U/L (34-104) 03/14/24 TP 5.0 gm/dl (6.0-8.3) L 03/14/24 Albumin 3.1 gm/dl (3.4-5.0) L 03/14/24 Globulin 1.9 gm/dl (2.5-4.0) L 03/14/24 Albumin/Globulin Ratio 1.6 (0.9-2) 03/14/24 2 Mg 2.1 mg/dl (1.7-2.4) 03/14/24 04:37 Calcium Level 7.9 mg/dl (8.6-10.3) L 03/14/24 04:37 I & O Totals 24 Hours 03/13/24 03/14/24 03/15/24 06:59 06:59 06:59 Intake Total 3606.223 / 3606.223 3233.802 / 3233.802 Output Total 690 / 690 950 / 950 Balance 2916.223 / 2916.223 2283.802 / 2283.802 Cumulative 03/12/24 21:59 thru 03/14/24 06:00 Intake Total 6840.025 Output Total 1640 Balance 5200.025 RT Ventilator Mngmt (Last Documented) Ventilator Ordered Settings Respiratory Rate 14 03/14/24 06:00 Ventilator - PT Measurements Respiratory Rate 14 End-Tidal CO2 34 Coding Level of Care Code 02820 SUB INP/OBS CARE 1/25MIN Diagnoses Polysubstance overdose T50.902A Encounter type: initial encounter Injury intent: intentional self-harm Urinary retention R33.9 Hypotension due to medication I95.2 Suicide attempt T14.91XA (1) Polysubstance overdose Encounter type: initial encounter Injury intent: intentional self-harm Qualified Code(s): T50.902A - Poisoning by unspecified drugs, medicaments and biological substances, intentional self-harm, initial encounter
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
[2024-03-14] MEDS: NICOTINE 21 MG/24 HR TDSY TD SCH (20:02)
[2024-03-15 06:38] LABS: Hematocrit (blood only) 37.8 % (42.0-52.0); Mean Corpuscular Hemoglobin 31.7 pg (25.0-34.0); Mean Corpuscular Hgb Conc 34.4 g/dL (32.0-36.0); Mean Corpuscular Volume 92.2 fL (80.0-100.0); Mean Platelet Volume 9.4 fL (9.4-12.4); Platelet Count 242 K/uL (130-400); RDW Coefficient of Variation 11.5 % (11.5-14.5); White Blood Count 12.74 K/ul (4.8-10.8)
[2024-03-15 07:01] LABS: Albumin Globulin Ratio 1.7 (0.9-2); Albumin Level 3.3 gm/dl (3.4-5.0); BUN Creatinine Ratio 12.3 (10-20); Bilirubin,Total 0.2 mg/dl (0.2-1.0); Calcium 8.2 mg/dl (8.6-10.3); Creatinine Clr Calc Pharmacy 119.6 ml/min; Est GFR (African American) 146.2 ml/min; Est GFR (Non-African American) 126.2 ml/min; Globulin 1.9 gm/dl (2.5-4.0); Magnesium 1.9 mg/dl (1.7-2.4); Phosphorus 5.2 mg/dl (2.5-4.9); Potassium 3.7 mmol/L (3.5-5.1); Total Protein 5.2 gm/dl (6.0-8.3)
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
--- NOTE | 2024-03-16 09:05 | Electrocardiogram Report ---
Test Reason : Blood Pressure : / mmHG Vent. Rate : 070 BPM Atrial Rate : 070 BPM P-R Int : 130 ms QRS Dur : 082 ms QT Int : 416 ms P-R-T Axes : 018 069 037 degrees QTc Int : 449 ms Poor data quality, interpretation may be adversely affected Normal sinus rhythm Long QTU Prominent U waves(consider hypokalemia,drug effect, etc.) Abnormal ECG When compared with ECG of 13-MAR-2024 12:00, U waves more prominent Otherwise no significant change Confirmed by Renaldo Rojas ([id number]) on 03/16/2024 9:04:48 AM Referred By: REFERRED SELF Confirmed By:Renaldo Rojas
[2024-03-16 12:32] LABS: Amphetamine Urine, Confirm 1730 ng/mL (<250); Methamphetamine, Ur Confirm 8580 ng/mL (<250)
== END 2024-03-15 14:50 | DRG 913 ==
LOC: ED 22:14 → 1E 03-13 03:56 → 2W 03-14 17:56

== ENCOUNTER 2024-03-15 09:20 | Inpatient (IN) ==
[2024-03-15] MEDS ORDERED: ALUMINUM/MAGNESIUM SUSP 30 ML UDC PO PRN (13:32)
[2024-03-15] MEDS ORDERED: hydrOXYzine HCl 25 MG TAB PO PRN ×2 (13:32)
[2024-03-15] MEDS ORDERED: MAGNESIUM HYDROXIDE SUSP 30 ML UDC PO PRN (13:32)
[2024-03-15] MEDS ORDERED: ACETAMINOPHEN 325 MG TAB PO PRN (13:32)
[2024-03-15] MEDS ORDERED: SODIUM CHLORIDE 0.65% NA SOLN 45 ML (OCEAN) PRN (13:32)
[2024-03-15] MEDS ORDERED: BISMUTH SUBSALICYLATE LIQD 236 ML PO PRN (13:32)
[2024-03-15] MEDS: NICOTINE POLACRILEX 2 MG GUM MT PRN (21:19)
[2024-03-16] MEDS: NICOTINE 14 MG/24 HR PATCH TD SCH (08:28)
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
== END 2024-03-16 10:03 | DRG 883 ==
LOC: 3S 14:59